=== PATIENT | female | born 1975 | race Caucasian/White ===

== ENCOUNTER 2023-05-07 07:45 | Inpatient (IN) | payer MEDICARE, OTHER ==
[~2023-05-07] VITALS: Ht 167.6 cm; Wt 129.1 kg
[2023-05-07 08:44] LABS: Eosinophils # (auto) 0.1 10 ^3/uL (0-0.8); Lymphocytes # (auto) 0.8 10 ^3/uL (0.4-5.4); Nucleated Red Blood Cells % 0.1 %; White Blood Cell 9.9 10^3/uL (4.4-10.8)
[2023-05-07 08:48] LABS: Basophils # (auto) 0.1 10 ^3/uL (0-0.2); Basophils % (auto) 0.6 % (0.0-2.0); Eosinophils % (auto) 0.6 % (0.0-7.0); Hematocrit 30.2 % (36.0-46.0); Hemoglobin 10.4 g/dL (12.2-16.2); Lymphocytes % (auto) 8.4 % (10.0-50.0); Mean Corpuscular Hemoglobin 42.3 pg (28.0-32.0); Mean Corpuscular Hgb Conc. 34.5 g/dL (32.0-36.0); Mean Corpuscular Volume 122.8 fL (80.0-100.0); Monocytes # (auto) 0.7 10 ^3/uL (0-1.3); Monocytes % (auto) 6.6 % (0.0-12.0); Neutrophils # (auto) 8.3 10 ^3/uL (1.6-8.6); Neutrophils % (auto) 83.8 % (37.0-80.0); Red Blood Cells 2.46 10^6/uL (4.0-5.20); Red Cell Distribution Width 17.3 % (11.8-14.3)
[2023-05-07 09:00] LABS: Albumin 2.9 g/dL (3.4-5.0); Anion Gap 13 (5-15); Blood Alcohol < 3.0 mg/dL (<10); Blood Urea Nitrogen 9 mg/dL (7-18); Calcium 8.9 mg/dL (8.5-10.1); Carbon Dioxide 30 mmol/L (21-32); Chloride 82 mmol/L (98-107); Glucose 135 mg/dL (74-106); Lipase 85 U/L (73-393); Sodium 125 mmol/L (136-145)
[2023-05-07 09:04] LABS: Alanine Aminotransferase 48 U/L (13-56); Alkaline Phosphatase 256 U/L (45-117); Aspartate Aminotransferase 70 U/L (15-37); Bilirubin, Total 3.5 mg/dL (0.2-1.0); GFR African American 193 mL/min; GFR Non-African American 159 mL/min; Total Protein 7.2 g/dL (6.4-8.2)
[2023-05-07 10:26] VITALS: PULSE 105; RESP 14; O2SAT 99
[2023-05-07 11:04] LABS: Anisocytosis Slight; Macrocytosis Moderate; Platelet Estimate Adequate
[2023-05-07] MEDS ORDERED: POTASSIUM CHL 20MEQ/100ML 100 ML IV ONE (11:30)
[2023-05-07] MEDS ORDERED: SODIUM CHLORIDE 0.9% 2,000 ML IV ONE (12:00)
[2023-05-07] MEDS: ENOXAPARIN SOD 40 MG/0.4 ML SYRINGE SC SCH (12:25)
[2023-05-07 14:37] LABS: Hepatitis A Ab IgM Negative; Hepatitis B Surface Antigen Negative (Negative); Hepatitis C Antibody Negative (Negative)
[2023-05-07 14:38] LABS: Hepatitis B Core IgM Negative
[2023-05-07] MEDS: PIPERACILLIN-TAZOB 3.375GM 100 ML IV SCH ×2 (14:40→21:31)
[2023-05-07] MEDS: LACTULOSE 20Gm/30ML SOLN PO SCH ×3 (14:40→21:31)
[2023-05-07] MEDS: SODIUM CHLORIDE 0.9% 1,000 ML IV SCH ×2 (15:21→20:20)
[2023-05-07 17:21] VITALS: BP 119/70; PULSE 105; RESP 18; TEMP 97.8; O2SAT 96
[2023-05-07] MEDS ORDERED: GABA-1250 PO (18:20)
[2023-05-07] MEDS ORDERED: CYCL-838 PO (18:20)
[2023-05-07 18:34] LABS: Urine Bacteria FEW /hpf (None Seen); Urine Blood Negative /uL (Negative); Urine Clarity HAZY (Clear); Urine Color Yellow (Yellow); Urine Mucus FEW (None Seen); Urine Protein, UAD TRACE (Negative); Urine Specific Gravity 1.014 (1.001-1.035); Urine Urobilinogen >12.0 mg/dL (Negative); Urine WBC 4 /hpf (0 - 5)
[2023-05-07 18:52] LABS: Amphetamine Screen, Urine NEGATIVE (NEGATIVE); Barbiturate Scree,Urine NEGATIVE (NEGATIVE); Benzodiazephine Screen, Urine NEGATIVE (NEGATIVE); Cannabinoid Screen, Urine NEGATIVE (NEGATIVE); Cocaine Screen, Urine NEGATIVE (NEGATIVE); Opiate Scree,Urine NEGATIVE (NEGATIVE); Phencyclidine Screen, Urine NEGATIVE (NEGATIVE)
[2023-05-07 20:00] VITALS: BP 124/50; PULSE 107; PULSE 60; RESP 17; TEMP 98.8; O2SAT 97
[2023-05-07] MEDS: ONDANSETRON HCL 4 MG/2 ML VIAL IV PRN (21:47)
[2023-05-07 22:00] VITALS: BP 124/50; PULSE 107; RESP 17; TEMP 98.8; O2SAT 97
[2023-05-08] VITALS (7 sets, daily range): BP systolic 118–140; BP diastolic 63–83; PULSE 108–111; RESP 16–20; TEMP 87.1–98.4; O2SAT 96–100
[2023-05-08] MEDS: LACTULOSE 20Gm/30ML SOLN PO SCH ×3 (02:20→10:01)
[2023-05-08] MEDS: SODIUM CHLORIDE 0.9% 1,000 ML IV SCH ×3 (04:40→21:20)
[2023-05-08] MEDS: PIPERACILLIN-TAZOB 3.375GM 100 ML IV SCH (05:33)
[2023-05-08] MEDS: ONDANSETRON HCL 4 MG/2 ML VIAL IV PRN (05:54)
[2023-05-08 07:00] LABS: Hemoglobin 10.3 g/dL (12.2-16.2)
[2023-05-08 07:01] LABS: Albumin 2.8 g/dL (3.4-5.0); BUN/Creatinine Ratio 18.8 (10.0-20.0); Calcium 8.6 mg/dL (8.5-10.1)
[2023-05-08 07:03] LABS: Bilirubin, Total 3.8 mg/dL (0.2-1.0); Total Protein 6.8 g/dL (6.4-8.2)
[2023-05-08 07:30] LABS: Hematocrit 30.7 % (36.0-46.0); Mean Corpuscular Hemoglobin 41.9 pg (28.0-32.0); Mean Corpuscular Hgb Conc. 33.5 g/dL (32.0-36.0); Mean Corpuscular Volume 125.1 fL (80.0-100.0); Red Blood Cells 2.45 10^6/uL (4.0-5.20); Red Cell Distribution Width 17.8 % (11.8-14.3); White Blood Cell 11.2 10^3/uL (4.4-10.8)
[2023-05-08 07:35] LABS: Basophils % (manual) 0 (0.0-2.0); Blast Cells 0; Promyelocytes % 0; Reactive Lymphocytes 0
[2023-05-08 07:42] LABS: Potassium 2.8 mmol/L (3.5-5.1)
[2023-05-08] MEDS ORDERED: PANTOPRAZOLE 40 MG/10 ML VIAL INJ IV SCH (10:00)
[2023-05-08] MEDS: ENOXAPARIN SOD 40 MG/0.4 ML SYRINGE SC SCH (10:02)
[2023-05-08] MEDS: POTASSIUM CHL 20MEQ/100ML 100 ML IV SCH ×3 (10:04→16:08)
[2023-05-08 10:47] LABS: Anisocytosis Slight; Band Neutrophils % (manual) 1; Eosinophils % (manual) 8 (0-7); Lymphocytes % (manual) 11 (10.0-50.0); Macrocytosis Moderate; Metamyelocytes % 2; Monocytes % (manual) 5 (0-12); Myelocytes % 1; Platelet Estimate Adequate
[2023-05-08] MEDS ORDERED: cefTRIAXone 1GM/50ML D5W 50 ML IV ONE (11:15)
[2023-05-08] MEDS: PROMETHAZINE HCL 25 MG/ML 1ML IV PRN (13:00)
[2023-05-08] MEDS ORDERED: LACTULOSE 10g/15ml SOLN 473ML PR ONE (16:45)
[2023-05-08] MEDS ORDERED: LORazepam 2MG/ML-1ML VIAL IV PRN (23:00)
[2023-05-09] VITALS (7 sets, daily range): BP systolic 118–134; BP diastolic 53–73; PULSE 103–112; RESP 16–19; TEMP 97.2–98.9; O2SAT 92–100
[2023-05-09] MEDS: PROMETHAZINE HCL 25 MG/ML 1ML IV PRN ×2 (01:20→10:08)
[2023-05-09] MEDS: SODIUM CHLORIDE 0.9% 1,000 ML IV SCH ×3 (05:40→21:45)
[2023-05-09 06:02] LABS: INR 1.27 (0.9-1.15); Prothrombin Time 13.1 sec (9.3-11.8)
[2023-05-09] MEDS: cefTRIAXone 1GM/50ML D5W 50 ML IV SCH (09:02)
[2023-05-09] MEDS ORDERED: FLEET ENEMA(ADULT) 135 ML PR ONE (09:45)
[2023-05-09] MEDS: LACTULOSE 10g/15ml SOLN 473ML PR SCH (10:00)
[2023-05-09] MEDS: ENOXAPARIN SOD 40 MG/0.4 ML SYRINGE SC SCH ×2 (10:08→21:45)
[2023-05-09] MEDS: FOLIC ACID 1 MG, MULTIPLE VITAMIN 10 ML, MAGNESIUM SULF SDV 50% 8 MEQ, THIAMINE INJ 100... INJ SCH ×5 (13:03)
[2023-05-10 05:00] VITALS: BP 99/51; PULSE 110; RESP 19; TEMP 98.5; O2SAT 98
[2023-05-10] MEDS: SODIUM CHLORIDE 0.9% 1,000 ML IV SCH ×2 (06:30→15:00)
[2023-05-10 08:00] VITALS: BP 109/76; PULSE 108; RESP 19; TEMP 98.4; O2SAT 96
[2023-05-10 09:26] VITALS: BP 109/76; PULSE 108; RESP 19; TEMP 98.4; O2SAT 96
[2023-05-10] MEDS: LACTULOSE 10g/15ml SOLN 473ML PR SCH (10:00)
[2023-05-10] MEDS: cefTRIAXone 1GM/50ML D5W 50 ML IV SCH (10:23)
[2023-05-10] MEDS: ENOXAPARIN SOD 40 MG/0.4 ML SYRINGE SC SCH ×2 (10:28→21:08)
[2023-05-10] MEDS ORDERED: FLEET ENEMA(ADULT) 135 ML PR ONE (11:15)
[2023-05-10] MEDS: FOLIC ACID 1 MG, MULTIPLE VITAMIN 10 ML, MAGNESIUM SULF SDV 50% 8 MEQ, THIAMINE INJ 100... INJ SCH ×5 (12:36)
[2023-05-10 16:00] VITALS: BP 111/69; PULSE 94; RESP 20; TEMP 99; O2SAT 97
[2023-05-10 20:00] VITALS: PULSE 100; RESP 22; O2SAT 97
[2023-05-10 22:00] VITALS: BP 116/64; PULSE 105; RESP 18; TEMP 98.3; O2SAT 94
[2023-05-11] VITALS (7 sets, daily range): BP systolic 108–116; BP diastolic 51–62; PULSE 92–111; RESP 16–20; TEMP 97.3–98.6; O2SAT 90–96
[2023-05-11] MEDS: SODIUM CHLORIDE 0.9% 1,000 ML IV SCH ×3 (01:33→16:00)
[2023-05-11] MEDS ORDERED: MORPHINE SULFATE 4 MG/ML SYR/VIAL ONE (03:42)
[2023-05-11] MEDS ORDERED: MORPHINE SULFATE 4 MG/ML SYR/VIAL IV ONE (03:45)
[2023-05-11 07:30] LABS: BUN/Creatinine Ratio 42.3 (10.0-20.0); Calcium 8.2 mg/dL (8.5-10.1)
[2023-05-11 07:44] LABS: Basophils # (auto) 0.1 10 ^3/uL (0-0.2); Eosinophils # (auto) 0.2 10 ^3/uL (0-0.8); Lymphocytes # (auto) 1.6 10 ^3/uL (0.4-5.4); Monocytes # (auto) 1.1 10 ^3/uL (0-1.3); Neutrophils # (auto) 6.9 10 ^3/uL (1.6-8.6); Neutrophils % (auto) 70.4 % (37.0-80.0)
[2023-05-11 07:47] LABS: Basophils % (auto) 0.6 % (0.0-2.0); Eosinophils % (auto) 1.9 % (0.0-7.0); Hematocrit 28.4 % (36.0-46.0); Hemoglobin 9.3 g/dL (12.2-16.2); Mean Corpuscular Hemoglobin 42.7 pg (28.0-32.0); Mean Corpuscular Hgb Conc. 32.6 g/dL (32.0-36.0); Monocytes % (auto) 11.1 % (0.0-12.0); Nucleated Red Blood Cells % 0.2 %; Red Blood Cells 2.17 10^6/uL (4.0-5.20); White Blood Cell 9.8 10^3/uL (4.4-10.8)
[2023-05-11] MEDS: cefTRIAXone 1GM/50ML D5W 50 ML IV SCH (09:28)
[2023-05-11] MEDS: ENOXAPARIN SOD 40 MG/0.4 ML SYRINGE SC SCH ×2 (09:36→21:49)
[2023-05-11] MEDS: LACTULOSE 10g/15ml SOLN 473ML PR SCH (10:00)
[2023-05-11 11:45] LABS: Anisocytosis Slight; Macrocytosis Moderate; Platelet Estimate Adequate
[2023-05-11] MEDS: FOLIC ACID 1 MG, MULTIPLE VITAMIN 10 ML, MAGNESIUM SULF SDV 50% 8 MEQ, THIAMINE INJ 100... INJ SCH ×5 (13:55)
[2023-05-11] MEDS: PROMETHAZINE HCL 25 MG/ML 1ML IV PRN (18:32)
[2023-05-12] MEDS: SODIUM CHLORIDE 0.9% 1,000 ML IV SCH ×3 (00:20→17:00)
[2023-05-12 05:00] VITALS: BP 105/58; PULSE 106; RESP 20; TEMP 98.3; O2SAT 95
[2023-05-12 07:45] VITALS: O2SAT 96
[2023-05-12 09:00] VITALS: BP 92/68; PULSE 103; RESP 16; TEMP 98.1; O2SAT 96
[2023-05-12] MEDS: ENOXAPARIN SOD 40 MG/0.4 ML SYRINGE SC SCH ×2 (09:43→22:22)
[2023-05-12] MEDS: cefTRIAXone 1GM/50ML D5W 50 ML IV SCH (09:49)
[2023-05-12] MEDS: FOLIC ACID 1 MG, MULTIPLE VITAMIN 10 ML, MAGNESIUM SULF SDV 50% 8 MEQ, THIAMINE INJ 100... INJ SCH ×5 (12:45)
[2023-05-12 13:00] VITALS: BP 125/71; PULSE 112; RESP 20; TEMP 99; O2SAT 97
[2023-05-12] MEDS: LACTULOSE 10g/15ml SOLN 473ML PR SCH (15:50)
[2023-05-12 20:00] VITALS: PULSE 108; RESP 20; O2SAT 95
[2023-05-12 22:00] VITALS: BP 136/85; PULSE 108; RESP 20; TEMP 98.1; O2SAT 96
[2023-05-13 04:54] VITALS: BP 124/50; PULSE 109; RESP 22; TEMP 98.2; O2SAT 97
[2023-05-13] MEDS: SODIUM CHLORIDE 0.9% 1,000 ML IV SCH ×3 (05:03→18:00)
[2023-05-13] MEDS: SUCRALFATE 1 GM/10 ML ORAL SUSP PO SCH ×4 (06:26→23:01)
[2023-05-13 07:30] VITALS: PULSE 108; RESP 19; TEMP 97.9; O2SAT 96
[2023-05-13] MEDS ORDERED: LIDOCAINE VISCOUS 2% 15ML UD ONE (08:51)
[2023-05-13] MEDS ORDERED: SODIUM CHLORIDE LOCK 0 ML ONE (08:51)
[2023-05-13] MEDS ORDERED: diphenhdrAMINE HCL 50 MG/1 ML VL ONE (08:52)
[2023-05-13] MEDS ORDERED: fentaNYL CITRATE 100 MCG/2 ML VL ONE (08:52)
[2023-05-13] MEDS ORDERED: MIDAZOLAM HCL 5 MG/ML-1ML VIAL ONE (08:52)
[2023-05-13] MEDS: ENOXAPARIN SOD 40 MG/0.4 ML SYRINGE SC SCH ×2 (11:08→23:01)
[2023-05-13] MEDS: PANTOPRAZOLE 40 MG/10 ML VIAL INJ IV SCH ×2 (11:08→23:02)
[2023-05-13] MEDS: cefTRIAXone 1GM/50ML D5W 50 ML IV SCH (11:08)
[2023-05-13] MEDS: FOLIC ACID 1 MG, MULTIPLE VITAMIN 10 ML, MAGNESIUM SULF SDV 50% 8 MEQ, THIAMINE INJ 100... INJ SCH ×5 (12:43)
[2023-05-13 14:30] VITALS: BP 120/63; PULSE 100; RESP 20; TEMP 97.8; O2SAT 93
[2023-05-13 15:30] VITALS: BP 124/56; PULSE 111; RESP 22; TEMP 98.2; O2SAT 95
[2023-05-13] MEDS: LACTULOSE 10g/15ml SOLN 473ML PR SCH (17:08)
[2023-05-13 20:00] VITALS: PULSE 106
[2023-05-13 22:00] VITALS: BP 119/55; PULSE 106; RESP 18; TEMP 98.9; O2SAT 94
[2023-05-14] VITALS (7 sets, daily range): BP systolic 116–129; BP diastolic 59–72; PULSE 107–113; RESP 14–20; TEMP 98.1–98.8; O2SAT 91–100
[2023-05-14] MEDS: SODIUM CHLORIDE 0.9% 1,000 ML IV SCH ×3 (02:20→21:53)
[2023-05-14] MEDS: SUCRALFATE 1 GM/10 ML ORAL SUSP PO SCH ×4 (05:33→21:45)
[2023-05-14 09:43] LABS: Hemoglobin 10.1 g/dL (12.2-16.2); Mean Corpuscular Hgb Conc. 31.5 g/dL (32.0-36.0); White Blood Cell 11.6 10^3/uL (4.4-10.8)
[2023-05-14 09:45] LABS: Hematocrit 32.1 % (36.0-46.0); Mean Corpuscular Volume 126.8 fL (80.0-100.0); Red Blood Cells 2.53 10^6/uL (4.0-5.20); Red Cell Distribution Width 18.1 % (11.8-14.3)
[2023-05-14 09:51] LABS: Basophils % (manual) 0 (0.0-2.0); Blast Cells 0; Metamyelocytes % 0; Myelocytes % 0; Promyelocytes % 0; Reactive Lymphocytes 0
[2023-05-14 10:01] LABS: Calcium 7.8 mg/dL (8.5-10.1); Potassium 3.4 mmol/L (3.5-5.1)
[2023-05-14] MEDS: cefTRIAXone 1GM/50ML D5W 50 ML IV SCH (10:02)
[2023-05-14] MEDS: PANTOPRAZOLE 40 MG/10 ML VIAL INJ IV SCH ×2 (10:02→21:45)
[2023-05-14] MEDS: ENOXAPARIN SOD 40 MG/0.4 ML SYRINGE SC SCH ×2 (10:03→21:45)
[2023-05-14 10:06] LABS: BUN/Creatinine Ratio 41.9 (10.0-20.0); Bilirubin, Total 2.8 mg/dL (0.2-1.0)
[2023-05-14] MEDS ORDERED: POTASSIUM CHL 20 Meq TABLET PO ONE (11:45)
[2023-05-14] MEDS ORDERED: LORazepam 0.5 MG TAB PO PRN (11:45)
[2023-05-14 12:40] LABS: Band Neutrophils % (manual) 2; Eosinophils % (manual) 2 (0-7); Lymphocytes % (manual) 10 (10.0-50.0); Monocytes % (manual) 11 (0-12)
[2023-05-14 12:43] LABS: Anisocytosis Slight; Hypochromia Slight; Platelet Estimate Adequate; Polychromasia Slight
[2023-05-14 12:44] LABS: Macrocytosis Moderate
[2023-05-14] MEDS: FOLIC ACID 1 MG, MULTIPLE VITAMIN 10 ML, MAGNESIUM SULF SDV 50% 8 MEQ, THIAMINE INJ 100... INJ SCH ×5 (15:22)
[2023-05-15] MEDS: SODIUM CHLORIDE 0.9% 1,000 ML IV SCH ×2 (03:20→11:59)
[2023-05-15 05:00] VITALS: BP 133/70; PULSE 76; RESP 16; TEMP 98.3; O2SAT 100
[2023-05-15] MEDS: SUCRALFATE 1 GM/10 ML ORAL SUSP PO SCH ×3 (06:15→17:00)
[2023-05-15 08:00] VITALS: BP 122/82; PULSE 85; RESP 18; TEMP 98.3; O2SAT 100
[2023-05-15] MEDS: cefTRIAXone 1GM/50ML D5W 50 ML IV SCH (08:36)
[2023-05-15] MEDS: PANTOPRAZOLE 40 MG/10 ML VIAL INJ IV SCH (08:37)
[2023-05-15] MEDS: ENOXAPARIN SOD 40 MG/0.4 ML SYRINGE SC SCH (08:37)
[2023-05-15] MEDS ORDERED: LACTULOSE 20Gm/30ML SOLN PO SCH ×2 (08:45→22:00)
[2023-05-15] MEDS ORDERED: DOCUSATE SOD 100 MG CAP PO SCH (10:00)
[2023-05-15] MEDS ORDERED: LACT10PA2 PO (10:08)
[2023-05-15] MEDS ORDERED: LORA-1121 PO (10:08)
[2023-05-15] MEDS ORDERED: CIPR-173 PO (10:16)
[2023-05-15 12:00] VITALS: BP 116/87; PULSE 112; RESP 20; TEMP 98; O2SAT 96
[2023-05-15] MEDS: FOLIC ACID 1 MG, MULTIPLE VITAMIN 10 ML, MAGNESIUM SULF SDV 50% 8 MEQ, THIAMINE INJ 100... INJ SCH ×5 (12:00)
== END 2023-05-15 18:15 | disposition home or self-care (01) | DRG 391 ==
LOC: ER 07:45 → OVERFLOW 12:04 → WEST WING 17:33
PROVIDERS: ADMIT Family Medicine; ATTEND Family Medicine
DX: K59.00 Constipation, unspecified (principal); G93.41 Metabolic encephalopathy; E44.0 Moderate protein-calorie malnutrition; E87.1 Hypo-osmolality and hyponatremia; G82.20 Paraplegia, unspecified; G61.0 Guillain-Barre syndrome; N39.0 Urinary tract infection, site not specified; Z68.41 Body mass index [BMI] 40.0-44.9, adult; D64.9 Anemia, unspecified; E86.0 Dehydration; E87.6 Hypokalemia; K74.60 Unspecified cirrhosis of liver; K76.0 Fatty (change of) liver, not elsewhere classified; Z74.01 Bed confinement status; B96.1 Klebsiella pneumoniae [K. pneumoniae] as the cause of diseases classified elsewhere; F10.20 Alcohol dependence, uncomplicated; K76.82 Hepatic encephalopathy; E87.8 Other disorders of electrolyte and fluid balance, not elsewhere classified; F41.9 Anxiety disorder, unspecified; Z81.8 Family history of other mental and behavioral disorders; Z86.73 Personal history of transient ischemic attack (TIA), and cerebral infarction without residual deficits; Z98.84 Bariatric surgery status; E66.9 Obesity, unspecified; R47.81 Slurred speech
CPT/HCPCS: 36415; 70450; 70551; 74176; 76705; 80048; 80053; 80074; 80307; 80320; 81001; 82140; 82270; 83690; 83735; 84443; 85007; 85025; 85027; 85610; 87086; 87088; 87186; 93005; 95819; C9113; G0378; J0696; J2250; J2405; J2543; J3480

== ENCOUNTER 2023-06-20 11:53 | Inpatient (IN) | payer MEDICARE, OTHER ==
[2023-06-20] VITALS (19 sets, daily range): BP systolic 92–129; BP diastolic 36–63; PULSE 87–98; RESP 10–99; TEMP 95.9–98.1; O2SAT 98–100
[~2023-06-20] VITALS: Ht 177.8 cm; Wt 124.0 kg
[~2023-06-20 11:53] MED LIST: CIPR-173 PO; CYCL-838 PO; GABA-1250 PO; LACT10PA2 PO; LORA-1121 PO
[2023-06-20] MEDS ORDERED: SODIUM CHLORIDE 0.9% 1,000 ML IV ONE ×2 (12:15)
[2023-06-20] MEDS: NOREPINEPHRINE 8 MG/250ML KIT 250 ML IV SCH ×3 (12:45→14:00)
[2023-06-20 12:49] LABS: Mean Corpuscular Hemoglobin 32.4 pg (28.0-32.0); Mean Corpuscular Hgb Conc. 31.5 g/dL (32.0-36.0); Red Blood Cells 1.32 10^6/uL (4.0-5.20)
[2023-06-20 12:51] LABS: Hematocrit 13.5 % (36.0-46.0); Mean Corpuscular Volume 102.7 fL (80.0-100.0); White Blood Cell 13.4 10^3/uL (4.4-10.8)
[2023-06-20 12:56] LABS: INR 3.22 (0.9-1.15); Partial Thromboplastin Time 49.5 SEC (24.5-34.5); Prothrombin Time 31.3 sec (9.3-11.8)
[2023-06-20 12:59] LABS: Alanine Aminotransferase 51 U/L (7-40); Albumin 1.5 g/dL (3.2-4.8); Alkaline Phosphatase 170 U/L (46-116); Anion Gap 6 (5-15); Aspartate Aminotransferase 172 U/L (13-40); BUN/Creatinine Ratio 6.2 (10.0-20.0); Bilirubin, Total 7.9 mg/dL (0.2-1.0); Blood Alcohol < 3.0 mg/dL (<10); Blood Urea Nitrogen 9 mg/dL (9-23); Carbon Dioxide 26 mmol/L (20-30); Chloride 94 mmol/L (98-107); Glucose 90 mg/dL (74-106); Potassium 4.4 mmol/L (3.5-5.1); Red Cell Distribution Width 21.3 % (11.8-14.3); Sodium 126 mmol/L (136-145); Total Protein 3.9 g/dL (5.7-8.2)
[2023-06-20 13:04] LABS: Hemoglobin 4.3 g/dL (12.2-16.2)
[2023-06-20 13:06] LABS: Band Neutrophils % (manual) 0; Basophils % (manual) 0 (0.0-2.0); Blast Cells 0; Eosinophils % (manual) 0 (0-7); Metamyelocytes % 0; Myelocytes % 0; Promyelocytes % 0; Reactive Lymphocytes 0
[2023-06-20 13:53] LABS: Lymphocytes % (manual) 4 (10.0-50.0); Monocytes % (manual) 2 (0-12)
[2023-06-20 13:57] LABS: Platelet Estimate Decreased
[2023-06-20 14:03] LABS: Urine Bacteria NONE SEEN /hpf (None Seen); Urine Blood 1+ /uL (Negative); Urine Clarity HAZY (Clear); Urine Color Brown (Yellow); Urine Hyaline Cast FEW /lpf (0 - 2); Urine Mucus FEW (None Seen); Urine Protein, UAD 1+ (Negative); Urine Specific Gravity 1.025 (1.001-1.035); Urine WBC 32 /hpf (0 - 5); Urine WBC Clumps PRESENT /hpf (None Seen); Urine pH 5.5 (5.0-8.0)
[2023-06-20 14:10] LABS: Amphetamine Screen, Urine Neg (NEGATIVE); Barbiturate Scree,Urine Neg (NEGATIVE); Benzodiazephine Screen, Urine Neg (NEGATIVE); Cocaine Screen, Urine Neg (NEGATIVE); Opiate Scree,Urine Neg (NEGATIVE)
[2023-06-20 14:11] LABS: Cannabinoid Screen, Urine Neg (NEGATIVE); Phencyclidine Screen, Urine Neg (NEGATIVE)
[2023-06-20 14:22] LABS: Urine Sperm None Seen /hpf (None Seen)
[2023-06-20] MEDS ORDERED: DOCUSATE SOD 100 MG CAP PO PRN (16:45)
[2023-06-20] MEDS ORDERED: ALBUMIN 5% 250 ML IV ONE (16:45)
[2023-06-20] MEDS: PIPERACILLIN-TAZOB 3.375GM 100 ML IV SCH (17:12)
[2023-06-20] MEDS: FUROSEMIDE 40 MG/4 ML VIAL IV SCH (17:12)
[2023-06-20 17:27] LABS: Sodium Urine < 10 mmol/L (40-220)
[2023-06-20 17:34] LABS: Creatinine, Urine 154.82 mg/dL (30.0-125.0)
[2023-06-20] MEDS ORDERED: LACTULOSE 10g/15ml SOLN 473ML PR SCH (18:00)
[2023-06-20] MEDS ORDERED: LACTULOSE 20Gm/30ML SOLN PO ONE (18:00)
[2023-06-20 18:59] LABS: INR 3.42 (0.9-1.15); Prothrombin Time 33.1 sec (9.3-11.8)
[2023-06-20] MEDS: DOXYCYCLINE 100MG/250ML 250 ML IV SCH (20:27)
[2023-06-21] VITALS (103 sets, daily range): BP systolic 81–143; BP diastolic 5–119; PULSE 81–98; RESP 9–75; TEMP 96.7–98; O2SAT 49–100
[2023-06-21] MEDS: PIPERACILLIN-TAZOB 3.375GM 100 ML IV SCH ×3 (01:18→17:17)
[2023-06-21] MEDS: NOREPINEPHRINE 8 MG/250ML KIT 250 ML IV SCH ×2 (01:33→16:19)
[2023-06-21 03:32] LABS: Alanine Aminotransferase 66 U/L (7-40); Albumin 1.7 g/dL (3.2-4.8); Alkaline Phosphatase 163 U/L (46-116); Aspartate Aminotransferase 211 U/L (13-40); Blood Urea Nitrogen 6 mg/dL (9-23); Glucose 142 mg/dL (74-106)
[2023-06-21 03:33] LABS: Bilirubin, Total 11.8 mg/dL (0.2-1.0); Total Protein 4.3 g/dL (5.7-8.2)
[2023-06-21 03:35] LABS: Chloride 96 mmol/L (98-107); Sodium 126 mmol/L (136-145)
[2023-06-21 03:37] LABS: Anion Gap 8 (5-15); Carbon Dioxide 22 mmol/L (20-30)
[2023-06-21 03:38] LABS: Calcium 7.2 mg/dL (8.7-10.4)
[2023-06-21 03:53] LABS: BUN/Creatinine Ratio 3.9 (10.0-20.0)
[2023-06-21 04:31] LABS: Hemoglobin 7.5 g/dL (12.2-16.2); Mean Corpuscular Volume 91.3 fL (80.0-100.0); Nucleated Red Blood Cells % 0.1 %
[2023-06-21 04:32] LABS: Basophils # (auto) 0.1 10 ^3/uL (0-0.2); Basophils % (auto) 0.7 % (0.0-2.0); Eosinophils # (auto) 0.1 10 ^3/uL (0-0.8); Eosinophils % (auto) 0.8 % (0.0-7.0); Hematocrit 22.2 % (36.0-46.0); Lymphocytes # (auto) 1.8 10 ^3/uL (0.4-5.4); Lymphocytes % (auto) 11.2 % (10.0-50.0); Mean Corpuscular Hemoglobin 30.9 pg (28.0-32.0); Mean Corpuscular Hgb Conc. 33.9 g/dL (32.0-36.0); Monocytes # (auto) 1.8 10 ^3/uL (0-1.3); Monocytes % (auto) 11.3 % (0.0-12.0); Neutrophils # (auto) 12.2 10 ^3/uL (1.6-8.6); Red Blood Cells 2.43 10^6/uL (4.0-5.20); Red Cell Distribution Width 19.7 % (11.8-14.3)
[2023-06-21] MEDS: FUROSEMIDE 40 MG/4 ML VIAL IV SCH ×2 (05:34→18:54)
[2023-06-21 06:10] LABS: Base Excess -0.6 mmol/L (-2.0-2.0)
[2023-06-21] MEDS: DOXYCYCLINE 100MG/250ML 250 ML IV SCH ×2 (09:01→21:15)
[2023-06-21] MEDS: ALBUMIN 25% 100 ML IV SCH ×2 (10:59→17:16)
[2023-06-21] MEDS: PANTOPRAZOLE 40 MG/10 ML VIAL INJ IV SCH (11:00)
[2023-06-21] MEDS: methylPREDNISolone SOD SUCC 40 MG/ML VL IV SCH ×2 (15:08→21:15)
[2023-06-21] MEDS: LACTULOSE 20Gm/30ML SOLN PO SCH ×2 (15:35→18:53)
[2023-06-21] MEDS: DOPamine 1600MCG/ML D5W 250 ML IV SCH (15:40)
[2023-06-21 17:50] LABS: Hematocrit 16.7 % (36.0-46.0)
[2023-06-21 17:53] LABS: Hemoglobin 5.6 g/dL (12.2-16.2)
[2023-06-21] MEDS: ESTROGENS, CONJUGATED 25 MG VIAL IM SCH (18:59)
[2023-06-22] VITALS (112 sets, daily range): BP systolic 78–146; BP diastolic 38–90; PULSE 82–97; RESP 8–21; TEMP 96.7–98.3; O2SAT 95–100
[2023-06-22] MEDS: LACTULOSE 20Gm/30ML SOLN PO SCH ×3 (00:16→12:00)
[2023-06-22] MEDS: ESTROGENS, CONJUGATED 25 MG VIAL IM SCH ×4 (00:17→20:16)
[2023-06-22] MEDS: PIPERACILLIN-TAZOB 3.375GM 100 ML IV SCH ×3 (00:18→17:03)
[2023-06-22] MEDS: ALBUMIN 25% 100 ML IV SCH (02:02)
[2023-06-22 04:49] LABS: Base Excess -0.5 mmol/L (-2.0-2.0)
[2023-06-22] MEDS: methylPREDNISolone SOD SUCC 40 MG/ML VL IV SCH ×3 (05:38→22:42)
[2023-06-22] MEDS: FUROSEMIDE 40 MG/4 ML VIAL IV SCH ×2 (05:38→18:37)
[2023-06-22] MEDS: LACTULOSE 10g/15ml SOLN 473ML PR SCH ×3 (07:11→18:37)
[2023-06-22] MEDS: NOREPINEPHRINE 8 MG/250ML KIT 250 ML IV SCH (07:11)
[2023-06-22 10:01] LABS: Basophils # (auto) 0 10 ^3/uL (0-0.2); Basophils % (auto) 0.3 % (0.0-2.0); Eosinophils # (auto) 0 10 ^3/uL (0-0.8); Hemoglobin 7.1 g/dL (12.2-16.2); Mean Corpuscular Hemoglobin 29.8 pg (28.0-32.0); Red Blood Cells 2.38 10^6/uL (4.0-5.20)
[2023-06-22 10:03] LABS: Hematocrit 20.7 % (36.0-46.0); Lymphocytes # (auto) 0.9 10 ^3/uL (0.4-5.4); Lymphocytes % (auto) 6.1 % (10.0-50.0); Mean Corpuscular Hgb Conc. 34.3 g/dL (32.0-36.0); Mean Corpuscular Volume 86.8 fL (80.0-100.0); Monocytes # (auto) 0.6 10 ^3/uL (0-1.3); Neutrophils # (auto) 13.2 10 ^3/uL (1.6-8.6); Neutrophils % (auto) 89.6 % (37.0-80.0); Nucleated Red Blood Cells % 0.2 %; Red Cell Distribution Width 16.9 % (11.8-14.3); White Blood Cell 14.7 10^3/uL (4.4-10.8)
[2023-06-22] MEDS: PANTOPRAZOLE 40 MG/10 ML VIAL INJ IV SCH (10:13)
[2023-06-22] MEDS: DOXYCYCLINE 100MG/250ML 250 ML IV SCH (10:13)
[2023-06-22 12:27] LABS: Alanine Aminotransferase 46 U/L (7-40); Albumin 2.3 g/dL (3.2-4.8); Alkaline Phosphatase 96 U/L (46-116); Aspartate Aminotransferase 131 U/L (13-40); Bilirubin, Total 18.4 mg/dL (0.2-1.0); Blood Urea Nitrogen 13 mg/dL (9-23); Calcium 7.9 mg/dL (8.5-10.1); Carbon Dioxide 25 mmol/L (20-30); Glucose 144 mg/dL (74-106); Total Protein 4.1 g/dL (5.7-8.2)
[2023-06-22 15:28] LABS: Anion Gap 6 (5-15); Chloride 97 mmol/L (98-107); Potassium 3.7 mmol/L (3.5-5.1); Sodium 128 mmol/L (136-145)
[2023-06-22] MEDS: DOPamine 1600MCG/ML D5W 250 ML IV SCH (17:03)
[2023-06-22 17:10] LABS: Basophils # (auto) 0 10 ^3/uL (0-0.2); Eosinophils # (auto) 0 10 ^3/uL (0-0.8); Monocytes # (auto) 1.2 10 ^3/uL (0-1.3); Neutrophils # (auto) 13.1 10 ^3/uL (1.6-8.6); Red Cell Distribution Width 16.7 % (11.8-14.3); White Blood Cell 15.4 10^3/uL (4.4-10.8)
[2023-06-22 17:11] LABS: Basophils % (auto) 0.1 % (0.0-2.0); Hematocrit 17.9 % (36.0-46.0); Lymphocytes # (auto) 1.1 10 ^3/uL (0.4-5.4); Lymphocytes % (auto) 7.3 % (10.0-50.0); Mean Corpuscular Hemoglobin 30.2 pg (28.0-32.0); Mean Corpuscular Hgb Conc. 34.7 g/dL (32.0-36.0); Mean Corpuscular Volume 87.2 fL (80.0-100.0); Monocytes % (auto) 7.9 % (0.0-12.0); Neutrophils % (auto) 84.7 % (37.0-80.0); Red Blood Cells 2.05 10^6/uL (4.0-5.20)
[2023-06-22 17:23] LABS: Hemoglobin 6.2 g/dL (12.2-16.2)
[2023-06-23] VITALS (106 sets, daily range): BP systolic 86–129; BP diastolic 29–86; PULSE 87–100; RESP 10–28; TEMP 97.8–98.7; O2SAT 94–100
[2023-06-23] MEDS: LACTULOSE 10g/15ml SOLN 473ML PR SCH ×3 (00:10→12:09)
[2023-06-23] MEDS: PIPERACILLIN-TAZOB 3.375GM 100 ML IV SCH ×2 (01:17→08:16)
[2023-06-23] MEDS ORDERED: ESTROGENS, CONJUGATED 25 MG VIAL IM ONE (02:00)
[2023-06-23 03:40] LABS: Eosinophils # (auto) 0 10 ^3/uL (0-0.8); Hematocrit 22.2 % (36.0-46.0)
[2023-06-23 03:41] LABS: Basophils # (auto) 0.1 10 ^3/uL (0-0.2); Basophils % (auto) 0.4 % (0.0-2.0); Hemoglobin 7.4 g/dL (12.2-16.2); Lymphocytes % (auto) 4.8 % (10.0-50.0); Mean Corpuscular Hemoglobin 29.7 pg (28.0-32.0); Mean Corpuscular Hgb Conc. 33.4 g/dL (32.0-36.0); Mean Corpuscular Volume 88.9 fL (80.0-100.0); Monocytes # (auto) 2.1 10 ^3/uL (0-1.3); Monocytes % (auto) 10.2 % (0.0-12.0); Neutrophils # (auto) 17.5 10 ^3/uL (1.6-8.6); Neutrophils % (auto) 84.6 % (37.0-80.0); Nucleated Red Blood Cells % 0.2 %; White Blood Cell 20.6 10^3/uL (4.4-10.8)
[2023-06-23 04:00] LABS: Alanine Aminotransferase 50 U/L (7-40); Alkaline Phosphatase 116 U/L (46-116); Anion Gap 7 (5-15); Aspartate Aminotransferase 128 U/L (13-40); Blood Urea Nitrogen 14 mg/dL (9-23); Calcium 7.9 mg/dL (8.7-10.4); Carbon Dioxide 24 mmol/L (20-30); Chloride 99 mmol/L (98-107); Glucose 139 mg/dL (74-106); Potassium 3.2 mmol/L (3.5-5.1); Sodium 130 mmol/L (136-145)
[2023-06-23 04:01] LABS: Albumin 2.2 g/dL (3.2-4.8); Bilirubin, Total 17.3 mg/dL (0.2-1.0); Total Protein 4.1 g/dL (5.7-8.2)
[2023-06-23 04:10] LABS: INR 2.31 (0.9-1.15); Partial Thromboplastin Time 48.1 SEC (24.5-34.5)
[2023-06-23] MEDS: methylPREDNISolone SOD SUCC 40 MG/ML VL IV SCH (05:40)
[2023-06-23] MEDS: FUROSEMIDE 40 MG/4 ML VIAL IV SCH ×2 (05:42→17:39)
[2023-06-23] MEDS: PANTOPRAZOLE 40 MG/10 ML VIAL INJ IV SCH (10:22)
[2023-06-23] MEDS: DOPamine 1600MCG/ML D5W 250 ML IV SCH ×2 (10:45→19:47)
[2023-06-23] MEDS: ALBUMIN 25% 50 ML IV SCH ×2 (11:25→18:17)
[2023-06-23] MEDS: NOREPINEPHRINE 8 MG/250ML KIT 250 ML IV SCH (13:30)
[2023-06-23] MEDS ORDERED: MIDODRINE HCL 10 MG TAB PO ONE (14:15)
[2023-06-23] MEDS ORDERED: POTASSIUM EFFERVESENT TAB 25 MEQ PO ONE (14:15)
[2023-06-23] MEDS ORDERED: levoFLOXacin 500MG 100 ML IV ONE (16:00)
[2023-06-23] MEDS: LACTULOSE 20Gm/30ML SOLN PO SCH ×2 (17:39→23:53)
[2023-06-23] MEDS: MIDODRINE HCL 10 MG TAB PO SCH (17:40)
[2023-06-23] MEDS: Nepro With Carbsteady ButterPecan 8oz Carton PO SCH (18:24)
[2023-06-23] MEDS: OCTREOTIDE ACETATE 100 MCG/ML VL SUBCUT SCH (21:40)
[2023-06-24] VITALS (112 sets, daily range): BP systolic 86–129; BP diastolic 31–84; PULSE 82–103; RESP 9–21; TEMP 97.8–98.9; O2SAT 72–99
[2023-06-24] MEDS: ALBUMIN 25% 50 ML IV SCH (03:02)
[2023-06-24 04:14] LABS: Basophils # (auto) 0 10 ^3/uL (0-0.2); Basophils % (auto) 0.1 % (0.0-2.0); Eosinophils # (auto) 0 10 ^3/uL (0-0.8); Nucleated Red Blood Cells % 0.1 %; Red Cell Distribution Width 16.1 % (11.8-14.3)
[2023-06-24 04:16] LABS: Hematocrit 15.7 % (36.0-46.0); Lymphocytes # (auto) 1.2 10 ^3/uL (0.4-5.4); Lymphocytes % (auto) 5.7 % (10.0-50.0); Mean Corpuscular Hemoglobin 30.7 pg (28.0-32.0); Mean Corpuscular Hgb Conc. 34.1 g/dL (32.0-36.0); Monocytes # (auto) 2.5 10 ^3/uL (0-1.3); Monocytes % (auto) 11.7 % (0.0-12.0); Neutrophils # (auto) 17.6 10 ^3/uL (1.6-8.6); Neutrophils % (auto) 82.5 % (37.0-80.0); Red Blood Cells 1.74 10^6/uL (4.0-5.20); White Blood Cell 21.4 10^3/uL (4.4-10.8)
[2023-06-24 04:27] LABS: Hemoglobin 5.3 g/dL (12.2-16.2)
[2023-06-24 04:28] LABS: INR 2.25 (0.9-1.15); Partial Thromboplastin Time 45.9 SEC (24.5-34.5); Prothrombin Time 22.4 sec (9.3-11.8)
[2023-06-24 04:32] LABS: Alanine Aminotransferase 47 U/L (7-40); Alkaline Phosphatase 112 U/L (46-116); Anion Gap 8 (5-15); Blood Urea Nitrogen 19 mg/dL (9-23); Calcium 7.9 mg/dL (8.7-10.4); Carbon Dioxide 25 mmol/L (20-30); Chloride 98 mmol/L (98-107); Glucose 141 mg/dL (74-106); Potassium 3.3 mmol/L (3.5-5.1); Sodium 131 mmol/L (136-145)
[2023-06-24 04:33] LABS: Albumin 2.7 g/dL (3.2-4.8); Aspartate Aminotransferase 98 U/L (13-40); Bilirubin, Total 16.9 mg/dL (0.2-1.0); Total Protein 4.1 g/dL (5.7-8.2)
[2023-06-24] MEDS: LACTULOSE 20Gm/30ML SOLN PO SCH ×3 (05:31→18:18)
[2023-06-24] MEDS: MIDODRINE HCL 10 MG TAB PO SCH ×3 (05:31→18:18)
[2023-06-24] MEDS: OCTREOTIDE ACETATE 100 MCG/ML VL SUBCUT SCH ×3 (05:32→21:57)
[2023-06-24] MEDS ORDERED: POTASSIUM EFFERVESENT TAB 25 MEQ PO ONE (06:15)
[2023-06-24] MEDS: FUROSEMIDE 40 MG/4 ML VIAL IV SCH ×2 (06:19→18:18)
[2023-06-24] MEDS: Nepro With Carbsteady ButterPecan 8oz Carton PO SCH ×3 (08:38→18:25)
[2023-06-24] MEDS: levoFLOXacin 250MG 50 ML IV SCH (09:29)
[2023-06-24] MEDS: methylPREDNISolone SOD SUCC 40 MG/ML VL IV SCH (09:30)
[2023-06-24] MEDS: PANTOPRAZOLE 40 MG/10 ML VIAL INJ IV SCH (09:30)
[2023-06-24] MEDS ORDERED: phytonadione 10 MG in SODIUM CHL 0.9% 50 ML IV ONE (14:30)
[2023-06-24] MEDS: NOREPINEPHRINE 8 MG/250ML KIT 250 ML IV SCH (18:18)
[2023-06-24] MEDS: metroNIDAZOLE 500MG/100ML 100 ML IV SCH (21:57)
[2023-06-24] MEDS: DOPamine 1600MCG/ML D5W 250 ML IV SCH (21:58)
[2023-06-25] VITALS (102 sets, daily range): BP systolic 90–159; BP diastolic 36–129; PULSE 91–100; RESP 8–25; TEMP 97.9–98.7; O2SAT 84–100
[2023-06-25] MEDS: LACTULOSE 20Gm/30ML SOLN PO SCH ×5 (00:04→22:39)
[2023-06-25 04:12] LABS: Basophils # (auto) 0 10 ^3/uL (0-0.2); Eosinophils # (auto) 0 10 ^3/uL (0-0.8)
[2023-06-25 04:15] LABS: Basophils % (auto) 0.2 % (0.0-2.0); Hematocrit 18.8 % (36.0-46.0); Lymphocytes # (auto) 1.2 10 ^3/uL (0.4-5.4); Lymphocytes % (auto) 5.3 % (10.0-50.0); Mean Corpuscular Hemoglobin 30.3 pg (28.0-32.0); Mean Corpuscular Hgb Conc. 35.3 g/dL (32.0-36.0); Mean Corpuscular Volume 85.9 fL (80.0-100.0); Monocytes # (auto) 2.4 10 ^3/uL (0-1.3); Neutrophils # (auto) 18.4 10 ^3/uL (1.6-8.6); Neutrophils % (auto) 83.5 % (37.0-80.0); Nucleated Red Blood Cells % 0.2 %; Red Blood Cells 2.19 10^6/uL (4.0-5.20); Red Cell Distribution Width 15.7 % (11.8-14.3); White Blood Cell 22.1 10^3/uL (4.4-10.8)
[2023-06-25 04:28] LABS: INR 1.7 (0.9-1.15); Partial Thromboplastin Time 37.7 SEC (24.5-34.5); Prothrombin Time 17.2 sec (9.3-11.8)
[2023-06-25 04:30] LABS: Hemoglobin 6.6 g/dL (12.2-16.2)
[2023-06-25 04:35] LABS: Albumin 2.7 g/dL (3.2-4.8); Alkaline Phosphatase 115 U/L (46-116); Anion Gap 8 (5-15); Carbon Dioxide 27 mmol/L (20-30); Chloride 98 mmol/L (98-107); Glucose 149 mg/dL (74-106); Potassium 3.1 mmol/L (3.5-5.1); Sodium 133 mmol/L (136-145)
[2023-06-25 04:36] LABS: Bilirubin, Total 21.4 mg/dL (0.2-1.0)
[2023-06-25 04:46] LABS: Alanine Aminotransferase 47 U/L (7-40); Aspartate Aminotransferase 86 U/L (13-40); BUN/Creatinine Ratio 9.7 (10.0-20.0); Blood Urea Nitrogen 21 mg/dL (9-23); Total Protein 4.3 g/dL (5.7-8.2)
[2023-06-25] MEDS ORDERED: POTASSIUM CHL 20MEQ/100ML 100 ML IV ONE (05:30)
[2023-06-25] MEDS: metroNIDAZOLE 500MG/100ML 100 ML IV SCH ×3 (05:45→21:15)
[2023-06-25] MEDS: MIDODRINE HCL 10 MG TAB PO SCH ×3 (05:45→18:00)
[2023-06-25] MEDS: FUROSEMIDE 40 MG/4 ML VIAL IV SCH ×2 (05:45→18:00)
[2023-06-25] MEDS: OCTREOTIDE ACETATE 100 MCG/ML VL SUBCUT SCH ×3 (05:46→21:15)
[2023-06-25] MEDS: ONDANSETRON HCL 4 MG/2 ML VIAL IV PRN (09:02)
[2023-06-25] MEDS: Nepro With Carbsteady ButterPecan 8oz Carton PO SCH ×3 (09:02→18:00)
[2023-06-25] MEDS: levoFLOXacin 250MG 50 ML IV SCH (10:39)
[2023-06-25] MEDS: PANTOPRAZOLE 40 MG/10 ML VIAL INJ IV SCH (10:40)
[2023-06-25] MEDS: methylPREDNISolone SOD SUCC 40 MG/ML VL IV SCH (10:40)
[2023-06-25] MEDS: NOREPINEPHRINE 8 MG/250ML KIT 250 ML IV SCH ×2 (10:48→22:29)
[2023-06-25] MEDS ORDERED: POTASSIUM EFFERVESENT TAB 25 MEQ PO ONE (14:30)
[2023-06-25 15:14] LABS: Basophils # (auto) 0 10 ^3/uL (0-0.2); Eosinophils # (auto) 0 10 ^3/uL (0-0.8); Hemoglobin 7.7 g/dL (12.2-16.2); Red Cell Distribution Width 15.9 % (11.8-14.3)
[2023-06-25 15:17] LABS: Basophils % (auto) 0.2 % (0.0-2.0); Lymphocytes % (auto) 4.1 % (10.0-50.0); Mean Corpuscular Hgb Conc. 35.2 g/dL (32.0-36.0); Mean Corpuscular Volume 87.8 fL (80.0-100.0); Monocytes # (auto) 2.2 10 ^3/uL (0-1.3); Monocytes % (auto) 8.9 % (0.0-12.0); Neutrophils # (auto) 21.1 10 ^3/uL (1.6-8.6); Neutrophils % (auto) 86.8 % (37.0-80.0); Nucleated Red Blood Cells % 0.2 %; White Blood Cell 24.3 10^3/uL (4.4-10.8)
[2023-06-25] MEDS: DOPamine 1600MCG/ML D5W 250 ML IV SCH (22:29)
[2023-06-25] MEDS: MORPHINE SULFATE INJ 2 MG/ml SYRG IV PRN (22:30)
[2023-06-26] VITALS (89 sets, daily range): BP systolic 96–130; BP diastolic 41–96; PULSE 80–98; RESP 8–99; TEMP 97.5–98.6; O2SAT 91–100
[2023-06-26 04:16] LABS: Basophils # (auto) 0 10 ^3/uL (0-0.2); Eosinophils # (auto) 0 10 ^3/uL (0-0.8); Mean Corpuscular Volume 89.3 fL (80.0-100.0)
[2023-06-26 04:19] LABS: Basophils % (auto) 0.2 % (0.0-2.0); Lymphocytes # (auto) 2.4 10 ^3/uL (0.4-5.4); Mean Corpuscular Hgb Conc. 34.7 g/dL (32.0-36.0); Monocytes # (auto) 1.7 10 ^3/uL (0-1.3); Monocytes % (auto) 7.9 % (0.0-12.0); Neutrophils # (auto) 17.3 10 ^3/uL (1.6-8.6); Neutrophils % (auto) 80.9 % (37.0-80.0); Nucleated Red Blood Cells % 0.3 %; Red Blood Cells 1.91 10^6/uL (4.0-5.20); White Blood Cell 21.4 10^3/uL (4.4-10.8)
[2023-06-26 04:29] LABS: Hemoglobin 5.9 g/dL (12.2-16.2)
[2023-06-26 04:33] LABS: Albumin 2.4 g/dL (3.2-4.8); Alkaline Phosphatase 113 U/L (46-116); Anion Gap 6 (5-15); Bilirubin, Total 20.8 mg/dL (0.2-1.0); Calcium 7.8 mg/dL (8.7-10.4); Carbon Dioxide 28 mmol/L (20-30); Chloride 99 mmol/L (98-107); Glucose 151 mg/dL (74-106); Potassium 3.2 mmol/L (3.5-5.1); Sodium 133 mmol/L (136-145)
[2023-06-26 04:41] LABS: Alanine Aminotransferase 49 U/L (7-40); Aspartate Aminotransferase 97 U/L (13-40); BUN/Creatinine Ratio 11.3 (10.0-20.0); Blood Urea Nitrogen 23 mg/dL (9-23); Total Protein 3.8 g/dL (5.7-8.2)
[2023-06-26] MEDS: metroNIDAZOLE 500MG/100ML 100 ML IV SCH ×3 (05:12→22:03)
[2023-06-26] MEDS: LACTULOSE 20Gm/30ML SOLN PO SCH ×4 (05:12→23:19)
[2023-06-26] MEDS: FUROSEMIDE 40 MG/4 ML VIAL IV SCH ×2 (05:12→15:52)
[2023-06-26] MEDS: MIDODRINE HCL 10 MG TAB PO SCH ×3 (05:13→15:51)
[2023-06-26] MEDS: OCTREOTIDE ACETATE 100 MCG/ML VL SUBCUT SCH ×3 (05:13→22:03)
[2023-06-26] MEDS: PANTOPRAZOLE 40 MG/10 ML VIAL INJ IV SCH (07:29)
[2023-06-26] MEDS: levoFLOXacin 250MG 50 ML IV SCH (07:30)
[2023-06-26] MEDS: methylPREDNISolone SOD SUCC 40 MG/ML VL IV SCH (07:30)
[2023-06-26] MEDS: Nepro With Carbsteady ButterPecan 8oz Carton PO SCH ×3 (07:30→15:52)
[2023-06-26] MEDS ORDERED: LIDOCAINE 2%HCL (LOCAL ANESTH.) INJ 20ML MDV ONE (10:24)
[2023-06-26] MEDS ORDERED: IODIXANOL 320MG/ML 100ML BTL IV ONE (10:24)
[2023-06-26] MEDS ORDERED: HEPARIN IN NS 1000Units/500mL 1,500 ML ONE (10:24)
[2023-06-26] MEDS ORDERED: fentaNYL CITRATE 100 MCG/2 ML VL ONE ×2 (10:34→12:25)
[2023-06-26] MEDS ORDERED: MIDAZOLAM HCL 2MG/2ML 2ml VIAL (1mg/ml) ONE (10:34)
[2023-06-26] MEDS ORDERED: diphenhdrAMINE HCL 50 MG/1 ML VL ONE (10:40)
[2023-06-26] MEDS ORDERED: GELATIN 1 SPONGE SIZE 100 TOP ONE (12:21)
[2023-06-26] MEDS: NOREPINEPHRINE 8 MG/250ML KIT 250 ML IV SCH (15:52)
[2023-06-26] MEDS: DOPamine 1600MCG/ML D5W 250 ML IV SCH (20:13)
[2023-06-26] MEDS ORDERED: phytonadione 10 MG in SODIUM CHL 0.9% 50 ML IV ONE (21:00)
[2023-06-27] VITALS (101 sets, daily range): BP systolic 78–138; BP diastolic 30–63; PULSE 74–93; RESP 8–18; TEMP 97.4–98.4; O2SAT 94–100
[2023-06-27 01:01] LABS: Hemoglobin 8.2 g/dL (12.2-16.2)
[2023-06-27 01:03] LABS: Hematocrit 23.7 % (36.0-46.0)
[2023-06-27 04:10] LABS: Eosinophils # (auto) 0 10 ^3/uL (0-0.8); Eosinophils % (auto) 0.1 % (0.0-7.0); Hemoglobin 8.9 g/dL (12.2-16.2)
[2023-06-27 04:13] LABS: Basophils # (auto) 0.1 10 ^3/uL (0-0.2); Basophils % (auto) 0.3 % (0.0-2.0); Hematocrit 25.2 % (36.0-46.0); Lymphocytes # (auto) 0.6 10 ^3/uL (0.4-5.4); Lymphocytes % (auto) 2.7 % (10.0-50.0); Mean Corpuscular Hemoglobin 30.8 pg (28.0-32.0); Mean Corpuscular Hgb Conc. 35.2 g/dL (32.0-36.0); Mean Corpuscular Volume 87.5 fL (80.0-100.0); Monocytes # (auto) 2.2 10 ^3/uL (0-1.3); Monocytes % (auto) 10.5 % (0.0-12.0); Neutrophils % (auto) 86.4 % (37.0-80.0); Nucleated Red Blood Cells % 0.1 %; Red Blood Cells 2.88 10^6/uL (4.0-5.20); White Blood Cell 20.8 10^3/uL (4.4-10.8)
[2023-06-27 04:45] LABS: Carbon Dioxide 26 mmol/L (20-30)
[2023-06-27 04:46] LABS: Calcium 7.9 mg/dL (8.7-10.4)
[2023-06-27 04:50] LABS: Glucose 154 mg/dL (74-106)
[2023-06-27 04:51] LABS: Alkaline Phosphatase 126 U/L (46-116)
[2023-06-27 04:53] LABS: Anion Gap 9 (5-15); Chloride 99 mmol/L (98-107); Potassium 2.8 mmol/L (3.5-5.1); Sodium 134 mmol/L (136-145)
[2023-06-27 04:54] LABS: Alanine Aminotransferase 63 U/L (7-40); Albumin 2.3 g/dL (3.2-4.8); Aspartate Aminotransferase 119 U/L (13-40); BUN/Creatinine Ratio 13.4 (10.0-20.0); Bilirubin, Total 24.8 mg/dL (0.2-1.0); Blood Urea Nitrogen 25 mg/dL (9-23); Total Protein 4.3 g/dL (5.7-8.2)
[2023-06-27] MEDS: MIDODRINE HCL 10 MG TAB PO SCH ×3 (05:03→18:26)
[2023-06-27] MEDS: LACTULOSE 20Gm/30ML SOLN PO SCH ×4 (05:03→23:03)
[2023-06-27] MEDS: FUROSEMIDE 40 MG/4 ML VIAL IV SCH ×2 (05:03→18:27)
[2023-06-27] MEDS: metroNIDAZOLE 500MG/100ML 100 ML IV SCH ×3 (05:03→20:22)
[2023-06-27] MEDS: OCTREOTIDE ACETATE 100 MCG/ML VL SUBCUT SCH ×3 (05:04→20:22)
[2023-06-27] MEDS ORDERED: POTASSIUM CHL 20 Meq TABLET PO ONE (05:30)
[2023-06-27] MEDS: POTASSIUM CHL 20MEQ/100ML 100 ML IV SCH ×2 (06:00→08:18)
[2023-06-27] MEDS: Nepro With Carbsteady ButterPecan 8oz Carton PO SCH ×4 (08:33→18:27)
[2023-06-27] MEDS: levoFLOXacin 250MG 50 ML IV SCH (09:58)
[2023-06-27] MEDS: PANTOPRAZOLE 40 MG/10 ML VIAL INJ IV SCH (09:58)
[2023-06-27] MEDS: methylPREDNISolone SOD SUCC 40 MG/ML VL IV SCH (09:59)
[2023-06-27] MEDS ORDERED: OLOPATADINE 0.1% EACHEYE PRN ×2 (10:30→10:45)
[2023-06-27] MEDS ORDERED: EYE EACHEYE PRN ×2 (10:30→10:45)
[2023-06-27] MEDS: NOREPINEPHRINE 8 MG/250ML KIT 250 ML IV SCH (15:44)
[2023-06-28] VITALS (100 sets, daily range): BP systolic 88–126; BP diastolic 40–68; PULSE 80–99; RESP 8–18; TEMP 97.6–98.2; O2SAT 96–100
[2023-06-28] MEDS: DOPamine 1600MCG/ML D5W 250 ML IV SCH (02:41)
[2023-06-28 03:56] LABS: Hematocrit 22.9 % (36.0-46.0)
[2023-06-28 03:59] LABS: Hemoglobin 7.9 g/dL (12.2-16.2); Mean Corpuscular Hemoglobin 30.8 pg (28.0-32.0); Mean Corpuscular Hgb Conc. 34.6 g/dL (32.0-36.0); Mean Corpuscular Volume 89.1 fL (80.0-100.0); Red Blood Cells 2.57 10^6/uL (4.0-5.20); Red Cell Distribution Width 16.5 % (11.8-14.3); White Blood Cell 16.8 10^3/uL (4.4-10.8)
[2023-06-28 04:06] LABS: Basophils % (manual) 0 (0.0-2.0); Blast Cells 0; Eosinophils % (manual) 0 (0-7); Metamyelocytes % 0; Myelocytes % 0; Promyelocytes % 0; Reactive Lymphocytes 0
[2023-06-28 04:18] LABS: Alkaline Phosphatase 139 U/L (46-116); Calcium 7.9 mg/dL (8.7-10.4); Chloride 100 mmol/L (98-107)
[2023-06-28 04:19] LABS: Albumin 2.2 g/dL (3.2-4.8); Anion Gap 8 (5-15); Bilirubin, Total 23.3 mg/dL (0.2-1.0); Carbon Dioxide 27 mmol/L (20-30); Glucose 135 mg/dL (74-106); Phosphorus 4.4 mg/dL (2.4-5.1); Potassium 3.4 mmol/L (3.5-5.1); Sodium 135 mmol/L (136-145)
[2023-06-28 04:34] LABS: Alanine Aminotransferase 82 U/L (7-40); Aspartate Aminotransferase 161 U/L (13-40); BUN/Creatinine Ratio 13.9 (10.0-20.0); Blood Urea Nitrogen 26 mg/dL (9-23); Total Protein 4.2 g/dL (5.7-8.2)
[2023-06-28 04:38] LABS: Band Neutrophils % (manual) 1; Lymphocytes % (manual) 3 (10.0-50.0); Monocytes % (manual) 14 (0-12); Platelet Estimate Decreased
[2023-06-28 04:47] LABS: Bilirubin, Direct 17.7 mg/dL (<0.3)
[2023-06-28] MEDS: metroNIDAZOLE 500MG/100ML 100 ML IV SCH ×3 (05:27→21:40)
[2023-06-28] MEDS: FUROSEMIDE 40 MG/4 ML VIAL IV SCH ×2 (05:27→18:23)
[2023-06-28] MEDS: LACTULOSE 20Gm/30ML SOLN PO SCH ×3 (05:27→18:22)
[2023-06-28] MEDS: MIDODRINE HCL 10 MG TAB PO SCH ×3 (05:28→18:22)
[2023-06-28] MEDS: OCTREOTIDE ACETATE 100 MCG/ML VL SUBCUT SCH ×3 (05:28→21:41)
[2023-06-28] MEDS: Nepro With Carbsteady ButterPecan 8oz Carton PO SCH ×3 (08:00→18:00)
[2023-06-28] MEDS: PANTOPRAZOLE 40 MG/10 ML VIAL INJ IV SCH (09:52)
[2023-06-28] MEDS: levoFLOXacin 250MG 50 ML IV SCH (09:52)
[2023-06-28] MEDS: methylPREDNISolone SOD SUCC 40 MG/ML VL IV SCH (09:52)
[2023-06-28] MEDS: POTASSIUM CHL 20MEQ/100ML 100 ML IV SCH ×2 (12:44→14:46)
[2023-06-29] VITALS (97 sets, daily range): BP systolic 91–142; BP diastolic 32–104; PULSE 77–101; RESP 7–18; TEMP 98.1–99; O2SAT 96–100
[2023-06-29] MEDS: LACTULOSE 20Gm/30ML SOLN PO SCH ×5 (00:27→22:34)
[2023-06-29] MEDS: DOPamine 1600MCG/ML D5W 250 ML IV SCH (00:28)
[2023-06-29] MEDS: NOREPINEPHRINE 8 MG/250ML KIT 250 ML IV SCH (03:17)
[2023-06-29 04:37] LABS: Albumin 2.4 g/dL (3.2-4.8); Alkaline Phosphatase 184 U/L (46-116); Anion Gap 8 (5-15); Calcium 8.1 mg/dL (8.7-10.4); Carbon Dioxide 28 mmol/L (20-30); Chloride 99 mmol/L (98-107); Glucose 138 mg/dL (74-106); Potassium 3.2 mmol/L (3.5-5.1); Sodium 135 mmol/L (136-145)
[2023-06-29 04:42] LABS: Hematocrit 22.9 % (36.0-46.0); Mean Corpuscular Hemoglobin 30.9 pg (28.0-32.0); Mean Corpuscular Hgb Conc. 34.8 g/dL (32.0-36.0); Mean Corpuscular Volume 88.8 fL (80.0-100.0); Red Blood Cells 2.58 10^6/uL (4.0-5.20); White Blood Cell 19.4 10^3/uL (4.4-10.8)
[2023-06-29 04:44] LABS: Band Neutrophils % (manual) 0; Basophils % (manual) 0 (0.0-2.0); Blast Cells 0; Eosinophils % (manual) 0 (0-7); Metamyelocytes % 0; Promyelocytes % 0; Reactive Lymphocytes 0
[2023-06-29 04:59] LABS: Alanine Aminotransferase 105 U/L (7-40); Aspartate Aminotransferase 212 U/L (13-40); BUN/Creatinine Ratio 19.1 (10.0-20.0); Blood Urea Nitrogen 27 mg/dL (9-23); Total Protein 4.5 g/dL (5.7-8.2)
[2023-06-29] MEDS: MIDODRINE HCL 10 MG TAB PO SCH ×3 (05:42→17:55)
[2023-06-29] MEDS: metroNIDAZOLE 500MG/100ML 100 ML IV SCH ×3 (05:42→22:33)
[2023-06-29] MEDS: OCTREOTIDE ACETATE 100 MCG/ML VL SUBCUT SCH ×3 (05:43→22:34)
[2023-06-29] MEDS: FUROSEMIDE 40 MG/4 ML VIAL IV SCH ×2 (05:43→17:55)
[2023-06-29 05:54] LABS: Lymphocytes % (manual) 5 (10.0-50.0); Monocytes % (manual) 5 (0-12); Myelocytes % 1
[2023-06-29 05:55] LABS: Platelet Estimate Decreased
[2023-06-29] MEDS: Nepro With Carbsteady ButterPecan 8oz Carton PO SCH ×3 (08:24→17:57)
[2023-06-29] MEDS: methylPREDNISolone SOD SUCC 40 MG/ML VL IV SCH (09:42)
[2023-06-29] MEDS: PANTOPRAZOLE 40 MG/10 ML VIAL INJ IV SCH (09:42)
[2023-06-29] MEDS: levoFLOXacin 250MG 50 ML IV SCH (09:43)
[2023-06-29] MEDS ORDERED: POTASSIUM EFFERVESENT TAB 25 MEQ PO ONE (12:15)
[2023-06-29] MEDS: ONDANSETRON HCL 4 MG/2 ML VIAL IV PRN (15:56)
[2023-06-30] VITALS (97 sets, daily range): BP systolic 82–123; BP diastolic 30–85; PULSE 72–95; RESP 8–18; TEMP 97.7–98.9; O2SAT 98–100
[2023-06-30] MEDS: DOPamine 1600MCG/ML D5W 250 ML IV SCH (00:51)
[2023-06-30 04:57] LABS: Chloride 100 mmol/L (98-107); Sodium 138 mmol/L (136-145)
[2023-06-30 04:58] LABS: Anion Gap 8 (5-15); Calcium 8.1 mg/dL (8.5-10.1); Carbon Dioxide 30 mmol/L (20-30)
[2023-06-30 05:03] LABS: Glucose 149 mg/dL (74-106)
[2023-06-30 05:21] LABS: BUN/Creatinine Ratio 17.8 (10.0-20.0); Blood Urea Nitrogen 26 mg/dL (9-23)
[2023-06-30] MEDS: metroNIDAZOLE 500MG/100ML 100 ML IV SCH ×3 (05:40→21:53)
[2023-06-30] MEDS: OCTREOTIDE ACETATE 100 MCG/ML VL SUBCUT SCH ×3 (05:41→21:52)
[2023-06-30] MEDS: MIDODRINE HCL 10 MG TAB PO SCH ×3 (05:41→17:44)
[2023-06-30] MEDS: FUROSEMIDE 40 MG/4 ML VIAL IV SCH ×2 (05:41→17:44)
[2023-06-30] MEDS: NOREPINEPHRINE 8 MG/250ML KIT 250 ML IV SCH (05:42)
[2023-06-30 05:45] LABS: Potassium 2.9 mmol/L (3.5-5.1)
[2023-06-30] MEDS: Nepro With Carbsteady ButterPecan 8oz Carton PO SCH ×3 (08:00→17:44)
[2023-06-30] MEDS ORDERED: ALBUMIN 25% 50 ML IV ONE (11:00)
[2023-06-30] MEDS: POTASSIUM CHL 20MEQ/100ML 100 ML IV SCH ×2 (11:43→11:45)
[2023-06-30] MEDS: PANTOPRAZOLE 40 MG/10 ML VIAL INJ IV SCH (11:43)
[2023-06-30] MEDS: levoFLOXacin 500MG 100 ML IV SCH (11:43)
[2023-06-30] MEDS: methylPREDNISolone SOD SUCC 40 MG/ML VL IV SCH (11:44)
[2023-06-30] MEDS: POTASSIUM CHL 20 Meq TABLET PO SCH ×2 (11:44→12:05)
[2023-06-30] MEDS: LACTULOSE 20Gm/30ML SOLN PO SCH ×2 (11:44→21:52)
[2023-06-30] MEDS ORDERED: traMADol HCL 50 MG TAB PO PRN (14:45)
[2023-06-30 15:28] LABS: INR 1.66 (0.9-1.15); Partial Thromboplastin Time 33.4 SEC (24.5-34.5); Prothrombin Time 16.9 sec (9.3-11.8)
[2023-07-01] VITALS (88 sets, daily range): BP systolic 84–133; BP diastolic 29–73; PULSE 74–96; RESP 8–14; TEMP 97.9–98.7; O2SAT 92–100
[2023-07-01] MEDS: NOREPINEPHRINE 8 MG/250ML KIT 250 ML IV SCH (03:49)
[2023-07-01] MEDS: DOPamine 1600MCG/ML D5W 250 ML IV SCH (03:49)
[2023-07-01 04:34] LABS: Hematocrit 22.1 % (36.0-46.0); Hemoglobin 7.8 g/dL (12.2-16.2); Mean Corpuscular Hemoglobin 31.8 pg (28.0-32.0); Mean Corpuscular Hgb Conc. 35.1 g/dL (32.0-36.0); Mean Corpuscular Volume 90.7 fL (80.0-100.0); Red Blood Cells 2.44 10^6/uL (4.0-5.20); Red Cell Distribution Width 18.2 % (11.8-14.3); White Blood Cell 27.7 10^3/uL (4.4-10.8)
[2023-07-01 04:36] LABS: Band Neutrophils % (manual) 0; Basophils % (manual) 0 (0.0-2.0); Blast Cells 0; Eosinophils % (manual) 0 (0-7); Metamyelocytes % 0; Myelocytes % 0; Promyelocytes % 0; Reactive Lymphocytes 0
[2023-07-01 04:44] LABS: Alkaline Phosphatase 211 U/L (46-116); Calcium 8.4 mg/dL (8.7-10.4); Chloride 97 mmol/L (98-107); Potassium 3.4 mmol/L (3.5-5.1); Sodium 134 mmol/L (136-145)
[2023-07-01 04:46] LABS: Bilirubin, Total 29.2 mg/dL (0.2-1.0)
[2023-07-01 04:51] LABS: Alanine Aminotransferase 133 U/L (7-40); Albumin 2.7 g/dL (3.2-4.8); Anion Gap 7 (5-15); Aspartate Aminotransferase 229 U/L (13-40); BUN/Creatinine Ratio 15.3 (10.0-20.0); Blood Urea Nitrogen 24 mg/dL (9-23); Carbon Dioxide 30 mmol/L (20-30); Glucose 156 mg/dL (74-106); Magnesium 1.6 mg/dL (1.6-2.6); Total Protein 4.9 g/dL (5.7-8.2)
[2023-07-01] MEDS: FUROSEMIDE 40 MG/4 ML VIAL IV SCH ×2 (05:55→18:42)
[2023-07-01] MEDS: OCTREOTIDE ACETATE 100 MCG/ML VL SUBCUT SCH ×3 (05:55→21:43)
[2023-07-01] MEDS: MIDODRINE HCL 10 MG TAB PO SCH ×3 (05:56→18:41)
[2023-07-01] MEDS: metroNIDAZOLE 500MG/100ML 100 ML IV SCH ×3 (05:56→21:43)
[2023-07-01 07:30] LABS: Lymphocytes % (manual) 5 (10.0-50.0); Monocytes % (manual) 4 (0-12); Platelet Estimate Decreased
[2023-07-01] MEDS: Nepro With Carbsteady ButterPecan 8oz Carton PO SCH ×3 (08:00→18:00)
[2023-07-01] MEDS: LACTULOSE 20Gm/30ML SOLN PO SCH ×2 (10:53→21:43)
[2023-07-01] MEDS: PANTOPRAZOLE 40 MG/10 ML VIAL INJ IV SCH (10:53)
[2023-07-01] MEDS: methylPREDNISolone SOD SUCC 40 MG/ML VL IV SCH (10:54)
[2023-07-01] MEDS: levoFLOXacin 500MG 100 ML IV SCH (10:54)
[2023-07-01] MEDS ORDERED: CEFEPIME 2GM/50ML NS 50 ML IV ONE (13:30)
[2023-07-01] MEDS ORDERED: POTASSIUM EFFERVESENT TAB 25 MEQ PO ONE (13:30)
[2023-07-01] MEDS ORDERED: LIDOCAINE 1% (LOCAL ANESTH.) PF 5ml SDV ID ONE (13:30)
[2023-07-01] MEDS: MAGNESIUM SULFATE 1GM/100ML 100 ML IV SCH ×2 (14:13→16:52)
[2023-07-01] MEDS: SODIUM CHLOR 0.9% PF (SALINE LOCK) 10ML VIAL/SYR IV SCH (21:43)
[2023-07-01] MEDS: CEFEPIME 2GM/50ML NS 50 ML IV SCH (21:43)
[2023-07-01] MEDS: URSODIOL 300 MG CAP PO SCH (21:46)
[2023-07-02] VITALS (106 sets, daily range): BP systolic 72–126; BP diastolic 28–75; PULSE 76–113; RESP 7–16; TEMP 96.9–98; O2SAT 90–100
[2023-07-02 03:48] LABS: Hematocrit 19.1 % (36.0-46.0); Mean Corpuscular Hemoglobin 31.6 pg (28.0-32.0); Mean Corpuscular Hgb Conc. 34.4 g/dL (32.0-36.0); Mean Corpuscular Volume 91.9 fL (80.0-100.0); Red Blood Cells 2.08 10^6/uL (4.0-5.20); White Blood Cell 24.9 10^3/uL (4.4-10.8)
[2023-07-02 03:56] LABS: Basophils % (manual) 0 (0.0-2.0); Blast Cells 0; Eosinophils % (manual) 0 (0-7); Hemoglobin 6.6 g/dL (12.2-16.2); Metamyelocytes % 0; Myelocytes % 0; Promyelocytes % 0; Reactive Lymphocytes 0
[2023-07-02 04:02] LABS: Albumin 2.4 g/dL (3.2-4.8); Anion Gap 7 (5-15); Calcium 8.3 mg/dL (8.7-10.4); Carbon Dioxide 29 mmol/L (20-30); Chloride 95 mmol/L (98-107); Glucose 244 mg/dL (74-106); Potassium 3.2 mmol/L (3.5-5.1); Sodium 131 mmol/L (136-145)
[2023-07-02 04:03] LABS: Bilirubin, Total 26.5 mg/dL (0.2-1.0)
[2023-07-02 04:13] LABS: Alanine Aminotransferase 120 U/L (7-40); Aspartate Aminotransferase 196 U/L (13-40); BUN/Creatinine Ratio 16.6 (10.0-20.0); Blood Urea Nitrogen 24 mg/dL (9-23); Total Protein 4.4 g/dL (5.7-8.2)
[2023-07-02 04:58] LABS: Alkaline Phosphatase 195 U/L (46-116)
[2023-07-02 05:11] LABS: Band Neutrophils % (manual) 6; Platelet Estimate Decreased
[2023-07-02 05:12] LABS: Anisocytosis Slight; Hypochromia Slight; Target Cell FEW
[2023-07-02 05:13] LABS: Large Platelets FEW; Lymphocytes % (manual) 3 (10.0-50.0); Monocytes % (manual) 9 (0-12)
[2023-07-02] MEDS: FUROSEMIDE 40 MG/4 ML VIAL IV SCH ×2 (05:14→18:07)
[2023-07-02] MEDS: MIDODRINE HCL 10 MG TAB PO SCH ×3 (05:14→18:07)
[2023-07-02] MEDS: OCTREOTIDE ACETATE 100 MCG/ML VL SUBCUT SCH ×3 (05:15→21:12)
[2023-07-02] MEDS: metroNIDAZOLE 500MG/100ML 100 ML IV SCH ×2 (05:15→14:15)
[2023-07-02] MEDS: DOPamine 1600MCG/ML D5W 250 ML IV SCH (05:28)
[2023-07-02] MEDS: Nepro With Carbsteady ButterPecan 8oz Carton PO SCH ×3 (08:00→18:07)
[2023-07-02] MEDS ORDERED: POTASSIUM CHL 20MEQ/100ML 100 ML IV ONE (08:15)
[2023-07-02] MEDS: LACTULOSE 20Gm/30ML SOLN PO SCH ×2 (09:27→21:12)
[2023-07-02] MEDS: methylPREDNISolone SOD SUCC 40 MG/ML VL IV SCH (09:27)
[2023-07-02] MEDS: PANTOPRAZOLE 40 MG/10 ML VIAL INJ IV SCH (09:27)
[2023-07-02] MEDS: CEFEPIME 2GM/50ML NS 50 ML IV SCH ×2 (09:28→21:12)
[2023-07-02] MEDS: SODIUM CHLOR 0.9% PF (SALINE LOCK) 10ML VIAL/SYR IV SCH ×2 (09:29→21:12)
[2023-07-02] MEDS: URSODIOL 300 MG CAP PO SCH ×2 (10:02→21:12)
[2023-07-02] MEDS: ONDANSETRON HCL 4 MG/2 ML VIAL IV PRN (11:51)
[2023-07-02] MEDS: NOREPINEPHRINE 8 MG/250ML KIT 250 ML IV SCH (12:45)
[2023-07-02] MEDS: POTASSIUM CHL 20MEQ/100ML 100 ML IV SCH ×2 (16:11→18:06)
[2023-07-03] VITALS (47 sets, daily range): BP systolic 70–119; BP diastolic 34–67; PULSE 80–95; RESP 9–17; TEMP 97.9–98.8; O2SAT 90–100
[2023-07-03] MEDS: ONDANSETRON HCL 4 MG/2 ML VIAL IV PRN (04:15)
[2023-07-03 04:31] LABS: Albumin 2.2 g/dL (3.2-4.8); Alkaline Phosphatase 185 U/L (46-116); Anion Gap 7 (5-15); Calcium 8.2 mg/dL (8.7-10.4); Carbon Dioxide 29 mmol/L (20-30); Chloride 97 mmol/L (98-107); Glucose 117 mg/dL (74-106); Potassium 3.8 mmol/L (3.5-5.1); Sodium 133 mmol/L (136-145)
[2023-07-03 04:32] LABS: Bilirubin, Total 24.6 mg/dL (0.2-1.0)
[2023-07-03 04:36] LABS: Basophils # (auto) 0 10 ^3/uL (0-0.2); Basophils % (auto) 0.2 % (0.0-2.0); Eosinophils # (auto) 0 10 ^3/uL (0-0.8); Hematocrit 21.8 % (36.0-46.0); Hemoglobin 7.5 g/dL (12.2-16.2); Lymphocytes # (auto) 0.5 10 ^3/uL (0.4-5.4); Lymphocytes % (auto) 2.3 % (10.0-50.0); Mean Corpuscular Hemoglobin 30.9 pg (28.0-32.0); Mean Corpuscular Hgb Conc. 34.5 g/dL (32.0-36.0); Mean Corpuscular Volume 89.7 fL (80.0-100.0); Monocytes # (auto) 2.9 10 ^3/uL (0-1.3); Monocytes % (auto) 13.5 % (0.0-12.0); Neutrophils # (auto) 17.9 10 ^3/uL (1.6-8.6); Nucleated Red Blood Cells % 0.2 %; Red Blood Cells 2.43 10^6/uL (4.0-5.20); Red Cell Distribution Width 17.7 % (11.8-14.3); White Blood Cell 21.3 10^3/uL (4.4-10.8)
[2023-07-03 04:58] LABS: Alanine Aminotransferase 110 U/L (7-40); Aspartate Aminotransferase 181 U/L (13-40); BUN/Creatinine Ratio 15.7 (10.0-20.0); Blood Urea Nitrogen 25 mg/dL (9-23); Total Protein 3.9 g/dL (5.7-8.2)
[2023-07-03] MEDS: OCTREOTIDE ACETATE 100 MCG/ML VL SUBCUT SCH ×3 (05:12→22:50)
[2023-07-03] MEDS: MIDODRINE HCL 10 MG TAB PO SCH ×3 (05:12→17:48)
[2023-07-03] MEDS: FUROSEMIDE 40 MG/4 ML VIAL IV SCH ×2 (05:13→17:48)
[2023-07-03] MEDS: MORPHINE SULFATE INJ 2 MG/ml SYRG IV PRN (05:47)
[2023-07-03] MEDS: methylPREDNISolone SOD SUCC 40 MG/ML VL IV SCH (09:39)
[2023-07-03] MEDS: PANTOPRAZOLE 40 MG/10 ML VIAL INJ IV SCH (09:39)
[2023-07-03] MEDS: CEFEPIME 2GM/50ML NS 50 ML IV SCH ×2 (09:39→22:30)
[2023-07-03] MEDS: LACTULOSE 20Gm/30ML SOLN PO SCH ×2 (09:39→22:30)
[2023-07-03] MEDS: Nepro With Carbsteady ButterPecan 8oz Carton PO SCH ×3 (09:46→20:00)
[2023-07-03] MEDS: URSODIOL 300 MG CAP PO SCH ×2 (09:53→22:49)
[2023-07-03] MEDS: SODIUM CHLOR 0.9% PF (SALINE LOCK) 10ML VIAL/SYR IV SCH ×2 (09:53→22:27)
[2023-07-03] MEDS: NOREPINEPHRINE 8 MG/250ML KIT 250 ML IV SCH (12:45)
[2023-07-04] VITALS (18 sets, daily range): BP systolic 83–129; BP diastolic 40–76; PULSE 71–91; RESP 7–13; TEMP 94.1–98.6; O2SAT 89–99
[2023-07-04 05:08] LABS: Hemoglobin 7.8 g/dL (12.2-16.2)
[2023-07-04 05:12] LABS: Hematocrit 22.4 % (36.0-46.0); Mean Corpuscular Hemoglobin 31.3 pg (28.0-32.0); Mean Corpuscular Hgb Conc. 34.6 g/dL (32.0-36.0); Mean Corpuscular Volume 90.5 fL (80.0-100.0); Red Blood Cells 2.48 10^6/uL (4.0-5.20); White Blood Cell 27.5 10^3/uL (4.4-10.8)
[2023-07-04 05:14] LABS: Albumin 2.3 g/dL (3.2-4.8); Alkaline Phosphatase 202 U/L (46-116); Anion Gap 11 (5-15); Calcium 8.4 mg/dL (8.7-10.4); Carbon Dioxide 27 mmol/L (20-30); Chloride 95 mmol/L (98-107); Glucose 135 mg/dL (74-106); Potassium 3.3 mmol/L (3.5-5.1); Sodium 133 mmol/L (136-145)
[2023-07-04 05:15] LABS: Bilirubin, Total 26.6 mg/dL (0.2-1.0)
[2023-07-04 05:24] LABS: Basophils % (manual) 0 (0.0-2.0); Blast Cells 0; Eosinophils % (manual) 0 (0-7); Metamyelocytes % 0; Myelocytes % 0; Promyelocytes % 0; Reactive Lymphocytes 0
[2023-07-04 05:27] LABS: Alanine Aminotransferase 110 U/L (7-40); Aspartate Aminotransferase 169 U/L (13-40); BUN/Creatinine Ratio 15.8 (10.0-20.0); Blood Urea Nitrogen 29 mg/dL (9-23); Total Protein 4.3 g/dL (5.7-8.2)
[2023-07-04] MEDS: FUROSEMIDE 40 MG/4 ML VIAL IV SCH ×2 (05:46→16:15)
[2023-07-04] MEDS: MIDODRINE HCL 10 MG TAB PO SCH ×3 (05:46→16:15)
[2023-07-04] MEDS: OCTREOTIDE ACETATE 100 MCG/ML VL SUBCUT SCH ×3 (05:47→22:51)
[2023-07-04] MEDS: SODIUM CHLOR 0.9% PF (SALINE LOCK) 10ML VIAL/SYR IV SCH ×2 (07:34→22:00)
[2023-07-04 07:52] LABS: Band Neutrophils % (manual) 16; Lymphocytes % (manual) 2 (10.0-50.0); Monocytes % (manual) 1 (0-12); Platelet Estimate Decreased
[2023-07-04] MEDS: Nepro With Carbsteady ButterPecan 8oz Carton PO SCH ×3 (08:24→15:33)
[2023-07-04] MEDS: PANTOPRAZOLE 40 MG/10 ML VIAL INJ IV SCH (08:28)
[2023-07-04] MEDS: LACTULOSE 20Gm/30ML SOLN PO SCH ×3 (08:28→16:53)
[2023-07-04] MEDS: URSODIOL 300 MG CAP PO SCH ×2 (08:28→22:00)
[2023-07-04] MEDS: CEFEPIME 2GM/50ML NS 50 ML IV SCH ×2 (08:29→22:41)
[2023-07-04] MEDS: NOREPINEPHRINE 8 MG/250ML KIT 250 ML IV SCH (09:52)
[2023-07-04] MEDS ORDERED: predniSONE 20 MG TAB PO SCH (10:00)
[2023-07-04] MEDS ORDERED: POTASSIUM EFFERVESENT TAB 25 MEQ PO ONE (11:45)
[2023-07-04] MEDS ORDERED: VANCOMYCIN PER PHARMACY 0 MG IV SCH (11:45)
[2023-07-04] MEDS ORDERED: VANCOMYCIN 1GM/250ML 250 ML IV ONE (12:00)
[2023-07-04] MEDS: LORazepam 2MG/ML-1ML VIAL IV PRN (14:19)
[2023-07-04 15:06] LABS: Urine Bacteria FEW /hpf (None Seen); Urine Blood 2+ /uL (Negative); Urine Budding Yeast MANY /hpf (None Seen); Urine Clarity HAZY (Clear); Urine Color Yellow (Yellow); Urine Mucus FEW (None Seen); Urine Protein, UAD TRACE (Negative); Urine Specific Gravity 1.009 (1.001-1.035); Urine Urobilinogen Normal (Negative); Urine WBC 9 /hpf (0 - 5); Urine pH 5.5 (5.0-8.0)
[2023-07-05] VITALS (28 sets, daily range): BP systolic 89–121; BP diastolic 36–68; PULSE 3–92; RESP 9–16; TEMP 96.8–98.5; O2SAT 87–98
[2023-07-05] MEDS: LORazepam 2MG/ML-1ML VIAL IV PRN (02:08)
[2023-07-05] MEDS ORDERED: VANCOMYCIN 1GM/250ML 250 ML IV SCH (04:00)
[2023-07-05] MEDS: LACTULOSE 20Gm/30ML SOLN PO SCH ×4 (06:00→16:57)
[2023-07-05] MEDS: SODIUM CHLOR 0.9% PF (SALINE LOCK) 10ML VIAL/SYR IV SCH ×2 (07:17→22:00)
[2023-07-05] MEDS: Nepro With Carbsteady ButterPecan 8oz Carton PO SCH ×3 (07:17→14:31)
[2023-07-05] MEDS: NOREPINEPHRINE 8 MG/250ML KIT 250 ML IV SCH (07:17)
[2023-07-05] MEDS: FUROSEMIDE 40 MG/4 ML VIAL IV SCH ×2 (07:33→16:57)
[2023-07-05] MEDS: OCTREOTIDE ACETATE 100 MCG/ML VL SUBCUT SCH ×2 (07:34→12:35)
[2023-07-05] MEDS: MIDODRINE HCL 10 MG TAB PO SCH ×3 (07:34→16:57)
[2023-07-05 07:59] LABS: Hemoglobin 7.1 g/dL (12.2-16.2); Mean Corpuscular Hemoglobin 30.7 pg (28.0-32.0)
[2023-07-05 08:03] LABS: Hematocrit 21.4 % (36.0-46.0); Mean Corpuscular Hgb Conc. 33.2 g/dL (32.0-36.0); Mean Corpuscular Volume 92.4 fL (80.0-100.0); Red Blood Cells 2.32 10^6/uL (4.0-5.20); Red Cell Distribution Width 23.3 % (11.8-14.3); White Blood Cell 25.4 10^3/uL (4.4-10.8)
[2023-07-05 08:05] LABS: Band Neutrophils % (manual) 0; Basophils % (manual) 0 (0.0-2.0); Blast Cells 0; Eosinophils % (manual) 0 (0-7); Metamyelocytes % 0; Myelocytes % 0; Promyelocytes % 0; Reactive Lymphocytes 0
[2023-07-05] MEDS: PANTOPRAZOLE 40 MG/10 ML VIAL INJ IV SCH (08:14)
[2023-07-05] MEDS: methylPREDNISolone SOD SUCC 40 MG/ML VL IV SCH (08:14)
[2023-07-05] MEDS: URSODIOL 300 MG CAP PO SCH (08:14)
[2023-07-05] MEDS: CEFEPIME 2GM/50ML NS 50 ML IV SCH ×2 (08:15→22:00)
[2023-07-05 09:21] LABS: Albumin 2.1 g/dL (3.2-4.8); Alkaline Phosphatase 204 U/L (46-116); Anion Gap 9 (5-15); Bilirubin, Total 24.8 mg/dL (0.2-1.0); Carbon Dioxide 28 mmol/L (20-30); Chloride 96 mmol/L (98-107); Glucose 142 mg/dL (74-106); Potassium 3.2 mmol/L (3.5-5.1); Sodium 133 mmol/L (136-145)
[2023-07-05] MEDS ORDERED: FLUCONAZOLE 200MG/100ML 100 ML IV SCH (10:00)
[2023-07-05 13:26] LABS: Alanine Aminotransferase 101 U/L (7-40); Aspartate Aminotransferase 155 U/L (13-40); BUN/Creatinine Ratio 16.9 (10.0-20.0); Blood Urea Nitrogen 41 mg/dL (9-23); Total Protein 3.8 g/dL (5.7-8.2)
[2023-07-05 13:43] LABS: Lymphocytes % (manual) 1 (10.0-50.0); Monocytes % (manual) 4 (0-12); Platelet Estimate Decreased
[2023-07-06] VITALS (24 sets, daily range): BP systolic 77–124; BP diastolic 36–69; PULSE 71–93; RESP 9–20; TEMP 97.6–98.4; O2SAT 93–99
[2023-07-06] MEDS: URSODIOL 300 MG CAP PO SCH ×3 (00:58→23:09)
[2023-07-06] MEDS: OCTREOTIDE ACETATE 100 MCG/ML VL SUBCUT SCH ×4 (00:58→22:44)
[2023-07-06] MEDS: LACTULOSE 20Gm/30ML SOLN PO SCH ×5 (00:58→23:14)
[2023-07-06] MEDS: LORazepam 2MG/ML-1ML VIAL IV PRN ×3 (00:59→22:46)
[2023-07-06 06:10] LABS: Hemoglobin 7.3 g/dL (12.2-16.2)
[2023-07-06 06:13] LABS: Hematocrit 21.9 % (36.0-46.0); Mean Corpuscular Hemoglobin 31.2 pg (28.0-32.0); Mean Corpuscular Hgb Conc. 33.5 g/dL (32.0-36.0); Mean Corpuscular Volume 93.2 fL (80.0-100.0); Red Blood Cells 2.35 10^6/uL (4.0-5.20); White Blood Cell 26.9 10^3/uL (4.4-10.8)
[2023-07-06 06:28] LABS: Chloride 97 mmol/L (98-107); Potassium 3.1 mmol/L (3.5-5.1); Sodium 132 mmol/L (136-145)
[2023-07-06 06:29] LABS: Anion Gap 8 (5-15); Calcium 8.1 mg/dL (8.7-10.4); Carbon Dioxide 27 mmol/L (20-30)
[2023-07-06 06:34] LABS: Glucose 135 mg/dL (74-106)
[2023-07-06 06:37] LABS: BUN/Creatinine Ratio 17.4 (10.0-20.0); Blood Urea Nitrogen 47 mg/dL (9-23)
[2023-07-06 07:05] LABS: Red Cell Distribution Width 25.2 % (11.8-14.3)
[2023-07-06 07:10] LABS: Basophils % (manual) 0 (0.0-2.0); Blast Cells 0; Eosinophils % (manual) 0 (0-7); Metamyelocytes % 0; Myelocytes % 0; Promyelocytes % 0; Reactive Lymphocytes 0
[2023-07-06] MEDS: MIDODRINE HCL 10 MG TAB PO SCH ×3 (07:44→17:59)
[2023-07-06] MEDS: FUROSEMIDE 40 MG/4 ML VIAL IV SCH ×2 (07:44→17:58)
[2023-07-06] MEDS: Nepro With Carbsteady ButterPecan 8oz Carton PO SCH ×3 (08:00→17:59)
[2023-07-06 09:52] LABS: Band Neutrophils % (manual) 9; Lymphocytes % (manual) 3 (10.0-50.0); Monocytes % (manual) 4 (0-12); Platelet Estimate Decreased
[2023-07-06] MEDS ORDERED: POTASSIUM CHL 20MEQ/100ML 100 ML IV ONE (10:00)
[2023-07-06] MEDS: CEFEPIME 2GM/50ML NS 50 ML IV SCH ×2 (11:26→22:43)
[2023-07-06] MEDS: DOPamine 1600MCG/ML D5W 250 ML IV SCH (11:26)
[2023-07-06] MEDS: PANTOPRAZOLE 40 MG/10 ML VIAL INJ IV SCH (11:27)
[2023-07-06] MEDS: SODIUM CHLOR 0.9% PF (SALINE LOCK) 10ML VIAL/SYR IV SCH ×2 (11:27→22:00)
[2023-07-06] MEDS: methylPREDNISolone SOD SUCC 40 MG/ML VL IV SCH (11:27)
[2023-07-06] MEDS: MICAFUNGIN SODIUM 100 MG in SODIUM CHL 0.9% 100 ML IV SCH (12:30)
[2023-07-06] MEDS: NOREPINEPHRINE 8 MG/250ML KIT 250 ML IV SCH (12:45)
[2023-07-07] VITALS (24 sets, daily range): BP systolic 94–138; BP diastolic 40–63; PULSE 85–90; RESP 10–17; TEMP 97.6–98.7; O2SAT 94–98
[2023-07-07 04:56] LABS: Hemoglobin 7.8 g/dL (12.2-16.2)
[2023-07-07 04:57] LABS: Mean Corpuscular Hemoglobin 31.3 pg (28.0-32.0); Mean Corpuscular Hgb Conc. 33.7 g/dL (32.0-36.0); Mean Corpuscular Volume 92.8 fL (80.0-100.0); Red Blood Cells 2.48 10^6/uL (4.0-5.20); White Blood Cell 25.2 10^3/uL (4.4-10.8)
[2023-07-07 05:03] LABS: Red Cell Distribution Width 24.9 % (11.8-14.3)
[2023-07-07 05:04] LABS: Basophils % (manual) 0 (0.0-2.0); Blast Cells 0; Eosinophils % (manual) 0 (0-7); Metamyelocytes % 0; Myelocytes % 0; Promyelocytes % 0; Reactive Lymphocytes 0
[2023-07-07 05:10] LABS: Alkaline Phosphatase 243 U/L (46-116); Anion Gap 9 (5-15); Calcium 8.2 mg/dL (8.7-10.4); Carbon Dioxide 25 mmol/L (20-30); Chloride 97 mmol/L (98-107); Glucose 147 mg/dL (74-106); Potassium 3.4 mmol/L (3.5-5.1); Sodium 131 mmol/L (136-145)
[2023-07-07 05:11] LABS: Albumin 2.4 g/dL (3.2-4.8); Bilirubin, Total 28.1 mg/dL (0.2-1.0)
[2023-07-07 05:12] LABS: Alanine Aminotransferase 108 U/L (7-40); Aspartate Aminotransferase 171 U/L (13-40); BUN/Creatinine Ratio 18.4 (10.0-20.0); Blood Urea Nitrogen 53 mg/dL (9-23); Total Protein 4.3 g/dL (5.7-8.2)
[2023-07-07] MEDS: MIDODRINE HCL 10 MG TAB PO SCH ×3 (05:35→18:31)
[2023-07-07] MEDS: OCTREOTIDE ACETATE 100 MCG/ML VL SUBCUT SCH ×3 (05:35→22:21)
[2023-07-07] MEDS: FUROSEMIDE 40 MG/4 ML VIAL IV SCH (05:35)
[2023-07-07] MEDS: LACTULOSE 20Gm/30ML SOLN PO SCH ×4 (05:35→22:19)
[2023-07-07 06:09] LABS: Anisocytosis Moderate; Band Neutrophils % (manual) 3; Ovalocytes FEW; Platelet Estimate Decreased; Target Cell FEW
[2023-07-07 06:11] LABS: Lymphocytes % (manual) 15 (10.0-50.0); Monocytes % (manual) 4 (0-12)
[2023-07-07] MEDS: Nepro With Carbsteady ButterPecan 8oz Carton PO SCH ×3 (08:00→18:00)
[2023-07-07] MEDS: URSODIOL 300 MG CAP PO SCH ×2 (10:00→22:19)
[2023-07-07] MEDS ORDERED: Nepro With Carb Steady 1 Liter Bottle GT SCH (10:45)
[2023-07-07] MEDS: CEFEPIME 2GM/50ML NS 50 ML IV SCH ×2 (11:16→22:19)
[2023-07-07] MEDS: ALBUMIN 25% 100 ML IV SCH ×2 (11:16→22:19)
[2023-07-07] MEDS: methylPREDNISolone SOD SUCC 40 MG/ML VL IV SCH (11:17)
[2023-07-07] MEDS: MICAFUNGIN SODIUM 100 MG in SODIUM CHL 0.9% 100 ML IV SCH (11:17)
[2023-07-07] MEDS: SODIUM CHLOR 0.9% PF (SALINE LOCK) 10ML VIAL/SYR IV SCH ×2 (11:17→22:20)
[2023-07-07] MEDS: POTASSIUM CHL 20MEQ/100ML 100 ML IV SCH ×2 (11:17→13:16)
[2023-07-07] MEDS: PANTOPRAZOLE 40 MG/10 ML VIAL INJ IV SCH (11:17)
[2023-07-07] MEDS: BUMETANIDE 2.5mg/10ml (0.25 mg/ml) INJ IV SCH ×2 (11:18→18:30)
[2023-07-07] MEDS: LORazepam 2MG/ML-1ML VIAL IV PRN ×2 (11:56→20:17)
[2023-07-07] MEDS: NOREPINEPHRINE 8 MG/250ML KIT 250 ML IV SCH (12:45)
[2023-07-07] MEDS ORDERED: MORPHINE SULFATE INJ 2 MG/ml SYRG ONE (13:47)
[2023-07-07] MEDS: DOPamine 1600MCG/ML D5W 250 ML IV SCH (17:22)
[2023-07-07] MEDS: MORPHINE SULFATE INJ 2 MG/ml SYRG IV PRN (20:19)
[2023-07-08] VITALS (28 sets, daily range): BP systolic 93–121; BP diastolic 45–70; PULSE 80–87; RESP 9–15; TEMP 97.3–97.9; O2SAT 96–100
[2023-07-08] MEDS: MORPHINE SULFATE INJ 2 MG/ml SYRG IV PRN ×3 (00:34→18:41)
[2023-07-08 04:48] LABS: Eosinophils # (auto) 0 10 ^3/uL (0-0.8); Nucleated Red Blood Cells % 0.1 %
[2023-07-08 04:50] LABS: Basophils # (auto) 0.1 10 ^3/uL (0-0.2); Basophils % (auto) 0.3 % (0.0-2.0); Lymphocytes # (auto) 0.4 10 ^3/uL (0.4-5.4); Lymphocytes % (auto) 2.1 % (10.0-50.0); Mean Corpuscular Hemoglobin 31.3 pg (28.0-32.0); Mean Corpuscular Hgb Conc. 33.4 g/dL (32.0-36.0); Mean Corpuscular Volume 93.8 fL (80.0-100.0); Monocytes # (auto) 1.1 10 ^3/uL (0-1.3); Monocytes % (auto) 6.2 % (0.0-12.0); Neutrophils # (auto) 16.3 10 ^3/uL (1.6-8.6); Neutrophils % (auto) 91.4 % (37.0-80.0); Red Blood Cells 2.13 10^6/uL (4.0-5.20); White Blood Cell 17.8 10^3/uL (4.4-10.8)
[2023-07-08 04:54] LABS: Red Cell Distribution Width 24.8 % (11.8-14.3)
[2023-07-08 04:56] LABS: Hemoglobin 6.7 g/dL (12.2-16.2)
[2023-07-08 05:00] LABS: Alkaline Phosphatase 196 U/L (46-116); Bilirubin, Total 31.2 mg/dL (0.2-1.0); Calcium 8.8 mg/dL (8.7-10.4); Chloride 97 mmol/L (98-107); Potassium 3.8 mmol/L (3.5-5.1); Sodium 131 mmol/L (136-145)
[2023-07-08 05:03] LABS: Alanine Aminotransferase 89 U/L (7-40); Anion Gap 10 (5-15); Aspartate Aminotransferase 132 U/L (13-40); BUN/Creatinine Ratio 13.3 (10.0-20.0); Blood Urea Nitrogen 44 mg/dL (9-23); Carbon Dioxide 24 mmol/L (20-30); Glucose 171 mg/dL (74-106); Total Protein 4.9 g/dL (5.7-8.2)
[2023-07-08] MEDS: BUMETANIDE 2.5mg/10ml (0.25 mg/ml) INJ IV SCH ×2 (05:37→18:40)
[2023-07-08] MEDS: OCTREOTIDE ACETATE 100 MCG/ML VL SUBCUT SCH ×3 (05:37→22:32)
[2023-07-08] MEDS: MIDODRINE HCL 10 MG TAB PO SCH ×3 (05:37→18:40)
[2023-07-08 06:44] LABS: Anisocytosis Moderate; Platelet Estimate Decreased; Stomatocytes Few; Target Cell FEW
[2023-07-08] MEDS: Nepro With Carbsteady ButterPecan 8oz Carton PO SCH ×2 (08:00→12:00)
[2023-07-08] MEDS: CEFEPIME 2GM/50ML NS 50 ML IV SCH ×2 (10:00→22:31)
[2023-07-08] MEDS: ALBUMIN 25% 100 ML IV SCH ×2 (10:23→22:32)
[2023-07-08] MEDS: PANTOPRAZOLE 40 MG/10 ML VIAL INJ IV SCH (10:23)
[2023-07-08] MEDS: LACTULOSE 20Gm/30ML SOLN PO SCH ×2 (10:24→22:30)
[2023-07-08] MEDS: methylPREDNISolone SOD SUCC 40 MG/ML VL IV SCH (10:24)
[2023-07-08] MEDS: SODIUM CHLOR 0.9% PF (SALINE LOCK) 10ML VIAL/SYR IV SCH ×2 (10:24→22:31)
[2023-07-08] MEDS: MICAFUNGIN SODIUM 100 MG in SODIUM CHL 0.9% 100 ML IV SCH (10:25)
[2023-07-08] MEDS: URSODIOL 300 MG CAP PO SCH ×2 (10:25→22:31)
[2023-07-08] MEDS: NOREPINEPHRINE 8 MG/250ML KIT 250 ML IV SCH (12:45)
[2023-07-08] MEDS: LORazepam 2MG/ML-1ML VIAL IV PRN (16:08)
[2023-07-08] MEDS: DOPamine 1600MCG/ML D5W 250 ML IV SCH (18:51)
[2023-07-09] VITALS (25 sets, daily range): BP systolic 94–117; BP diastolic 43–56; PULSE 81–90; RESP 9–14; TEMP 97–98.6; O2SAT 94–100
[2023-07-09] MEDS: LORazepam 2MG/ML-1ML VIAL IV PRN ×3 (00:14→18:34)
[2023-07-09 04:18] LABS: Basophils # (auto) 0.1 10 ^3/uL (0-0.2); Eosinophils # (auto) 0 10 ^3/uL (0-0.8); Hemoglobin 8.3 g/dL (12.2-16.2); Nucleated Red Blood Cells % 0.1 %
[2023-07-09 04:19] LABS: Basophils % (auto) 0.4 % (0.0-2.0); Hematocrit 24.4 % (36.0-46.0); Lymphocytes # (auto) 0.2 10 ^3/uL (0.4-5.4); Lymphocytes % (auto) 1.2 % (10.0-50.0); Mean Corpuscular Hemoglobin 31.1 pg (28.0-32.0); Mean Corpuscular Hgb Conc. 33.9 g/dL (32.0-36.0); Mean Corpuscular Volume 91.6 fL (80.0-100.0); Monocytes # (auto) 1.4 10 ^3/uL (0-1.3); Monocytes % (auto) 7.3 % (0.0-12.0); Neutrophils # (auto) 17.3 10 ^3/uL (1.6-8.6); Neutrophils % (auto) 91.1 % (37.0-80.0); Red Blood Cells 2.66 10^6/uL (4.0-5.20); White Blood Cell 18.9 10^3/uL (4.4-10.8)
[2023-07-09] MEDS: MORPHINE SULFATE INJ 2 MG/ml SYRG IV PRN ×3 (04:26→18:35)
[2023-07-09 04:31] LABS: Alkaline Phosphatase 212 U/L (46-116); Calcium 9.2 mg/dL (8.7-10.4); Chloride 97 mmol/L (98-107); Potassium 3.7 mmol/L (3.5-5.1); Sodium 130 mmol/L (136-145)
[2023-07-09 04:32] LABS: Bilirubin, Total 33.1 mg/dL (0.2-1.0)
[2023-07-09 04:48] LABS: Red Cell Distribution Width 23.4 % (11.8-14.3)
[2023-07-09 05:00] LABS: Alanine Aminotransferase 86 U/L (7-40); Albumin 3.2 g/dL (3.2-4.8); Anion Gap 11 (5-15); Aspartate Aminotransferase 123 U/L (13-40); Blood Urea Nitrogen 50 mg/dL (9-23); Carbon Dioxide 22 mmol/L (20-30); Glucose 182 mg/dL (74-106); Total Protein 5.1 g/dL (5.7-8.2)
[2023-07-09] MEDS: BUMETANIDE 2.5mg/10ml (0.25 mg/ml) INJ IV SCH ×2 (06:13→18:34)
[2023-07-09] MEDS: MIDODRINE HCL 10 MG TAB PO SCH ×3 (06:13→18:34)
[2023-07-09] MEDS: OCTREOTIDE ACETATE 100 MCG/ML VL SUBCUT SCH ×3 (06:13→21:42)
[2023-07-09 06:40] LABS: Anisocytosis Moderate; Platelet Estimate Decreased
[2023-07-09 06:41] LABS: Stomatocytes Few; Target Cell MODERATE
[2023-07-09] MEDS: MICAFUNGIN SODIUM 100 MG in SODIUM CHL 0.9% 100 ML IV SCH (09:58)
[2023-07-09] MEDS: CEFEPIME 2GM/50ML NS 50 ML IV SCH ×2 (09:58→21:41)
[2023-07-09] MEDS: SODIUM CHLOR 0.9% PF (SALINE LOCK) 10ML VIAL/SYR IV SCH ×2 (09:59→21:41)
[2023-07-09] MEDS: LACTULOSE 20Gm/30ML SOLN PO SCH ×2 (09:59→21:41)
[2023-07-09] MEDS: methylPREDNISolone SOD SUCC 40 MG/ML VL IV SCH (09:59)
[2023-07-09] MEDS: URSODIOL 300 MG CAP PO SCH ×2 (09:59→22:10)
[2023-07-09] MEDS: PANTOPRAZOLE 40 MG/10 ML VIAL INJ IV SCH (09:59)
[2023-07-09] MEDS: NOREPINEPHRINE 8 MG/250ML KIT 250 ML IV SCH (12:45)
[2023-07-09] MEDS: DOPamine 1600MCG/ML D5W 250 ML IV SCH (21:14)
[2023-07-10] VITALS (15 sets, daily range): BP systolic 87–117; BP diastolic 35–47; PULSE 80–89; RESP 9–17; TEMP 97.4–98.2; O2SAT 95–99
[2023-07-10 05:54] LABS: Alkaline Phosphatase 241 U/L (46-116); Calcium 9.1 mg/dL (8.7-10.4); Chloride 96 mmol/L (98-107); Potassium 4.2 mmol/L (3.5-5.1); Sodium 130 mmol/L (136-145)
[2023-07-10 05:55] LABS: Bilirubin, Total 31.5 mg/dL (0.2-1.0)
[2023-07-10 05:57] LABS: Eosinophils # (auto) 0 10 ^3/uL (0-0.8); Mean Corpuscular Hemoglobin 31.2 pg (28.0-32.0); Mean Corpuscular Hgb Conc. 33.2 g/dL (32.0-36.0); Neutrophils # (auto) 20.6 10 ^3/uL (1.6-8.6); Red Blood Cells 2.55 10^6/uL (4.0-5.20)
[2023-07-10 06:00] LABS: Basophils # (auto) 0 10 ^3/uL (0-0.2); Basophils % (auto) 0.2 % (0.0-2.0); Lymphocytes # (auto) 0.3 10 ^3/uL (0.4-5.4); Lymphocytes % (auto) 1.2 % (10.0-50.0); Mean Corpuscular Volume 94.1 fL (80.0-100.0); Monocytes # (auto) 1.8 10 ^3/uL (0-1.3); Monocytes % (auto) 7.9 % (0.0-12.0); Neutrophils % (auto) 90.7 % (37.0-80.0); Nucleated Red Blood Cells % 0.4 %; White Blood Cell 22.7 10^3/uL (4.4-10.8)
[2023-07-10] MEDS: BUMETANIDE 2.5mg/10ml (0.25 mg/ml) INJ IV SCH (06:00)
[2023-07-10 06:15] LABS: Red Cell Distribution Width 23.4 % (11.8-14.3)
[2023-07-10 06:22] LABS: Alanine Aminotransferase 92 U/L (7-40); Albumin 2.9 g/dL (3.2-4.8); Anion Gap 14 (5-15); Aspartate Aminotransferase 149 U/L (13-40); BUN/Creatinine Ratio 19.1 (10.0-20.0); Carbon Dioxide 20 mmol/L (20-30); Glucose 172 mg/dL (74-106); Total Protein 4.5 g/dL (5.7-8.2)
[2023-07-10 06:23] LABS: Blood Urea Nitrogen 76 mg/dL (9-23)
[2023-07-10] MEDS: SODIUM CHLOR 0.9% PF (SALINE LOCK) 10ML VIAL/SYR IV SCH (06:58)
[2023-07-10] MEDS: OCTREOTIDE ACETATE 100 MCG/ML VL SUBCUT SCH ×2 (07:01→11:16)
[2023-07-10] MEDS: MIDODRINE HCL 10 MG TAB PO SCH ×2 (07:02→07:56)
[2023-07-10] MEDS: LACTULOSE 20Gm/30ML SOLN PO SCH (07:54)
[2023-07-10] MEDS: methylPREDNISolone SOD SUCC 40 MG/ML VL IV SCH (07:55)
[2023-07-10] MEDS: PANTOPRAZOLE 40 MG/10 ML VIAL INJ IV SCH (07:55)
[2023-07-10] MEDS: MICAFUNGIN SODIUM 100 MG in SODIUM CHL 0.9% 100 ML IV SCH (07:55)
[2023-07-10] MEDS: CEFEPIME 2GM/50ML NS 50 ML IV SCH (07:55)
[2023-07-10] MEDS: NOREPINEPHRINE 8 MG/250ML KIT 250 ML IV SCH (07:56)
[2023-07-10] MEDS: LORazepam 2MG/ML-1ML VIAL IV PRN ×2 (07:59→12:40)
[2023-07-10] MEDS: URSODIOL 300 MG CAP PO SCH (08:00)
[2023-07-10] MEDS: DOPamine 1600MCG/ML D5W 250 ML IV SCH (10:00)
[2023-07-10] MEDS: MORPHINE SULFATE INJ 2 MG/ml SYRG IV PRN ×2 (10:16→12:40)
== END 2023-07-10 14:51 | disposition hospice, home (50) | DRG 981 ==
LOC: ER 11:53 → EDBD 11:53 → TELE 16:56 → ICU WEST 23:17 → DOU IN ICU 07-03 18:53
PROVIDERS: ADMIT Nurse Practitioner Family; ATTEND Nurse Practitioner Acute Care
PROC: 30233N1 Transfusion of Nonautologous Red Blood Cells into Peripheral Vein, Percutaneous Approach (ICD-10-PCS; 2023-06-20)
PROC: 05HB33Z Insertion of Infusion Device into Right Basilic Vein, Percutaneous Approach (ICD-10-PCS; 2023-06-20)
PROC: B54MZZA Ultrasonography of Right Upper Extremity Veins, Guidance (ICD-10-PCS; 2023-06-20)
PROC: 02HV33Z Insertion of Infusion Device into Superior Vena Cava, Percutaneous Approach (ICD-10-PCS; 2023-06-21)
PROC: 30233R1 Transfusion of Nonautologous Platelets into Peripheral Vein, Percutaneous Approach (ICD-10-PCS; 2023-06-22)
PROC: 30233K1 Transfusion of Nonautologous Frozen Plasma into Peripheral Vein, Percutaneous Approach (ICD-10-PCS; 2023-06-24)
PROC: B41JYZZ Fluoroscopy of Other Lower Arteries using Other Contrast (ICD-10-PCS; 2023-06-24)
PROC: 04LE3DZ Occlusion of Right Internal Iliac Artery with Intraluminal Device, Percutaneous Approach (ICD-10-PCS; principal; 2023-06-26)
PROC: 04LF3DZ Occlusion of Left Internal Iliac Artery with Intraluminal Device, Percutaneous Approach (ICD-10-PCS; 2023-06-26)
PROC: 02HV33Z Insertion of Infusion Device into Superior Vena Cava, Percutaneous Approach (ICD-10-PCS; 2023-07-01)
PROC: B548ZZA Ultrasonography of Superior Vena Cava, Guidance (ICD-10-PCS; 2023-07-01)
DX: N93.8 Other specified abnormal uterine and vaginal bleeding (principal); E43 Unspecified severe protein-calorie malnutrition; K72.00 Acute and subacute hepatic failure without coma; K76.7 Hepatorenal syndrome; R57.1 Hypovolemic shock; N17.0 Acute kidney failure with tubular necrosis; D68.4 Acquired coagulation factor deficiency; D62 Acute posthemorrhagic anemia; E87.1 Hypo-osmolality and hyponatremia; G61.0 Guillain-Barre syndrome; G82.20 Paraplegia, unspecified; K92.2 Gastrointestinal hemorrhage, unspecified; D69.6 Thrombocytopenia, unspecified; K70.30 Alcoholic cirrhosis of liver without ascites; K76.82 Hepatic encephalopathy; N92.0 Excessive and frequent menstruation with regular cycle; E66.01 Morbid (severe) obesity due to excess calories; E87.6 Hypokalemia; E87.70 Fluid overload, unspecified; F10.10 Alcohol abuse, uncomplicated; K72.10 Chronic hepatic failure without coma; Z68.39 Body mass index [BMI] 39.0-39.9, adult; Z79.899 Other long term (current) drug therapy; Z86.73 Personal history of transient ischemic attack (TIA), and cerebral infarction without residual deficits; Z98.84 Bariatric surgery status
CPT/HCPCS: 36415; 36569; 36600; 37244; 70450; 71045; 74176; 75736; 76000; 76705; 76830; 76856; 76942; 80048; 80053; 80076; 80202; 80307; 80320; 81001; 82140; 82570; 82805; 82962; 83605; 83735; 83930; 83935; 84100; 84300; 84443; 84484; 84550; 84702; 85007; 85014; 85018; 85025; 85027; 85049; 85384; 85610; 85730; 86850; 86900; 86901; 86920; 87040; 87077; 87081; 87086; 87088; 87186; 93005; 93970; 96361; 96365; 97110; 97163; 97530; 99152; 99153; 99291; C1769; C1894; C9113; G0378; J0692; J1450; J1956; J2248; J2250; J2405; J2543; J3430; J3480; J3490; P9047; Q9967